=== PATIENT | male | born 1960 | race Native Hawaiian/Other Pacific Islander ===

== ENCOUNTER 2018-06-11 10:03 | Inpatient (IN) | payer OTHER ==
[2018-06-11] MEDS ORDERED: Nitroglycerin 50mg in D5W 50 MG/250 ML BOTTLE IV ONE (10:23)
[2018-06-11 10:38] LABS: BASO # 0.1 K/uL (0.0-0.2); BASO % 0.9 % (0.0-2.0); EOS % 0.1 % (0.0-4.0); HEMOGLOBIN 10.5 g/dL (12.0-18.0); LYMPH # 0.8 K/uL (1.0-4.3); LYMPH % 7.5 % (20.0-40.0); MEAN CELL VOLUME 84.1 fL (80.0-94.0); MEAN CORPUSCULAR HEMOGLOBIN 28.8 pg (27.0-31.0); MEAN CORPUSCULAR HGB CONC 34.2 g/dL (33.0-37.0); MEAN PLATELET VOLUME 7.8 fL (7.2-11.7); MONO # 1.1 K/uL (0.0-0.8); NEUT # 8.7 K/uL (1.8-7.0); NEUT % 81.5 % (50.0-75.0); RBC 3.64 Mil/uL (4.40-5.90); RED CELL DISTRIBUTION WIDTH 16.3 % (11.5-14.5); WHITE BLOOD COUNT 10.7 K/uL (4.8-10.8)
[2018-06-11 10:40] LABS: PLATELET COUNT 331 K/uL (130-400)
[2018-06-11 10:40] LABS: VENOUS BLOOD GAS PCO2 38 mmHg (40-60); VENOUS BLOOD GAS PO2 23 mm/Hg (30-55); VENOUS BLOOD PH 7.32 (7.32-7.43)
[2018-06-11] MEDS ORDERED: Azithromycin 500 MG in Sodium Chloride 0.9% 250 ML IVPB STA (10:42)
--- NOTE | 2018-06-11 10:44 | C.PDOC ---
History Of Present Illness 57 y/o male,w/PMhx of HTN, endarterectomy and diabetes, presents t o the ER complaining of shortness of breath which began 3 days ago. Patient states that he has difficulty breathing when he is walking and at rest. Patient is diaphor etic upon arrival. He notes that he was being evaluated in the [facility] and he was referred to the ER for evaluation.Denies having CP, fever, chills, nausea, and vomiting. Time Seen by Provider: 06/11/18 10:41 Chief Complaint (Nursing): Shortness Of Breath History Per: Patient History/Exam Limitations: no limitations Onset/Duration Of Symptoms: Days Current Symptoms Are (Timing): Still Present Severity: Moderate Past Medical History Reviewed: Historical Data, Nursing Documentation, Vital Signs Vital Signs: Last Vital Signs Temp 97.7 F 06/11/18 10:20 Pulse 88 06/11/18 10:20 Resp 12 06/11/18 10:20 BP 141/65 06/11/18 10:20 Pulse Ox 87 L 06/11/18 10:20 - Medical History PMH: Benign Prostatic Hyperplasia, HTN, Hypercholesterolemia Denies: Chronic Kidney Disease Other Surgeries: Hx of surgeries Family History: States: No Known Family Hx - Social History Hx Alcohol Use: No Hx Substance Use: No - Immunization History Hx Tetanus Toxoid Vaccination: Yes Hx Influenza Vaccination: Yes Hx Pneumococcal Vaccination: Yes Review Of Systems Except As Marked, All Systems Reviewed And Found Negative. Constitutional: Positive for: Sweats. Negative for: Fever, Chills Cardiovascular: Negative for: Chest Pain Respiratory: Positive for: Shortness of Breath Gastrointestinal: Negative for: Nausea, Vomiting Physical Exam - Physical Exam Appears: Non-toxic, No Acute Distress Skin: Normal Color, Warm, Dry Head: Atraumatic, Normacephalic Eye(s): bilateral: Normal Inspection Nose: Normal Oral Mucosa: Moist Neck: Supple Chest: Symmetrical Cardiovascular: Rhythm Regular Respiratory: Rales (mild rales at bases), No Rhonchi, No Wheezing Gastrointestinal/Abdominal: Normal Exam, Soft, No Tenderness, No Guarding, No Rebound Extremity: Normal ROM, Other (bilateral pitting edema) Neurological/Psych: Oriented x3, Normal Speech ED Course And Treatment - Laboratory Results Result Diagrams: 06/15/18 06:56 06/15/18 06:56 ECG: Interpreted By Me, Viewed By Me ECG Rhythm: Sinus Rhythm Interpretation Of ECG: NSR with LBBB Rate From EC O2 Sat by Pulse Oximetry: 87 Pulse Ox Interpretation: Abnormal - Other Rad CXR X-Ray: Viewed By Me, Read By Radiologist Interpretation: Date of service: 06/11/2018. HISTORY: sob. COMPARISON: No prior. FINDINGS: LUNGS: The lungs are well inflated. There is moderate pulmonary venous congestion and mild interstitial pulmonary edema. There is airspace disease in the right lower lobe. PLEURA: Small pleural effusions. No pneumothorax. CARDIOVASCULAR: Mild cardiomegaly. No aortic atherosclerotic calcification present. OSSEOUS STRUCTURES: Within normal limits for the patient's age. VISUALIZED UPPER ABDOMEN: Normal. OTHER FINDINGS: None. IMPRESSION: Findings are most compatible with mild congestive heart failure. Airspace disease in the right lower lobe may represent atelectasis however superimposed pneumonia cannot be excluded. Clinical follow-up is advised. Medical Decision Making Medical Decision Making: Plan: --Labs --ECG --CXR --Aspirin PO --Brilinta PO --Bumex IV --Rocephin IV Updates: 10:30 Case discussed with , import coordination and production head. recommends ordering basic labs and stat Echo. 11:14 On re-evaluation, patient states that he is feeling better. D-Dimer is positive. Lung VQ Scan has been ordered. 11:[address]R Davis. Patient will be admitted to ICU under the service of Dr.R Davis. Disposition - Disposition Disposition: HOME/ ROUTINE Disposition Time: 13:34 Condition: FAIR - POA Core Measure Indicators: Pneumonia - Clinical Impression Clinical Impression: CHF (congestive heart failure), Dyspnea, Respiratory distress
[2018-06-11 10:54] LABS: INR 1.2
[2018-06-11] MEDS ORDERED: Azithromycin 500mg/250ML NS 500 MG/250 ML BAG IVPB ONE (10:54)
[2018-06-11 10:58] LABS: ALB/GLOB RATIO 1.2 (1.0-2.1); ALBUMIN 4.4 g/dL (3.5-5.0)
--- NOTE | 2018-06-11 10:58 | RAD ---
Date of service: 06/11/2018 HISTORY: sob COMPARISON: No prior. FINDINGS: LUNGS: The lungs are well inflated. There is moderate pulmonary venous congestion and mild interstitial pulmonary edema. There is airspace disease in the right lower lobe. PLEURA: Small pleural effusions. No pneumothorax. CARDIOVASCULAR: Mild cardiomegaly. No aortic atherosclerotic calcification present. OSSEOUS STRUCTURES: Within normal limits for the patient's age. VISUALIZED UPPER ABDOMEN: Normal. OTHER FINDINGS: None. IMPRESSION: Findings are most compatible with mild congestive heart failure. Airspace disease in the right lower lobe may represent atelectasis however superimposed pneumonia cannot be excluded. Clinical follow-up is advised.
[2018-06-11 11:17] LABS: ANISOCYTOSIS SLIGHT; BANDS 1 % (0-2); LYMPHOCYTE 4 % (20-40); MONOCYTE 8 % (0-10); NEUTROPHIL 87 % (50-75); PLATELET ESTIMATE NORMAL (NORMAL); TOTAL CELLS COUNTED 100
[2018-06-11 11:18] LABS: HYPOCHROMIC SLIGHT; POLYCHROMIC SLIGHT
[2018-06-11 11:22] LABS: CK-MB 4.77 ng/mL (0.0-3.38); TROPONIN I 0.123 ng/mL (0.00-0.120)
[2018-06-11] MEDS ORDERED: cefTRIAXone 1 gm 1 GM/100 ML BAG IVPB ONE (11:22)
[2018-06-11 12:59] LABS: ABG ALLEN TEST POS; ARTERIAL BLOOD GAS HCO3 18.4 mmol/L (21-28); ARTERIAL BLOOD GAS O2 SAT 96.7 % (95-98); ARTERIAL BLOOD GAS PCO2 35 mm/Hg (35-45); ARTERIAL BLOOD GAS PO2 86 mm/Hg (80-100); ARTERIAL BLOOD GAS TCO2 18.3 mmol/L (22-28)
[2018-06-11] MEDS ORDERED: metOLazone 5 MG TAB PO ONE (13:15)
--- NOTE | 2018-06-11 14:22 | CP.PCM.CON ---
<Onesimo Martinez - Last Filed: 06/11/18 15:23> History of Present Illness - History of Present Illness History of Present Illness: Fredayobanicarissa Michelle PGY1 Consult Note for Dr. Aurora Davis CC: Shortness of breath HPI: Pt is a 57yo M with PMH HTN, CKD, DM, BPH presents to ED for shortness of breath. Pt was sent over from clinic for shortness of breath. Pt reports shortness of breath since Thursday, which he reports is at rest. Pt reports associated nonproductive cough. He also reports swelling in the legs b/l since Thursday. He denies chest pain, dizziness, nausea, vomiting. He reports taking his medications as prescribed. He denies using any breathing treatments or oxygen at home. Pt denies eating food with high sodium content. He typically sleeps with multiple pillows, propped up to 60 degrees. Pt denies fever, chills, abdominal pain, diarrhea, dysuria. 12-point ROS reviewed, all negative except what is stated in HPI. SxH: L carotid endarectomy SocH: 15-pack year smoking history, denies etoh or recreational drug use FamH: dad- heart disease Allergies: NKDA Meds: as per EMR PMD: [place] Review of Systems - Review of Systems Review of Systems: as per HPI Past Patient History - Infectious Disease Hx of Infectious Diseases: None - Past Medical History & Family History Past Medical History?: Yes - Past Social History Smoking Status: Never Smoked - CARDIAC Hx Hypercholesterolemia: Yes Hx Hypertension: Yes - PULMONARY Hx Respiratory Disorders: No - NEUROLOGICAL Hx Neurological Disorder: No - HEENT Hx HEENT Problems: No - RENAL Hx Chronic Kidney Disease: No - ENDOCRINE/METABOLIC Hx Endocrine Disorders: Yes Hx Diabetes Mellitus Type 2: Yes - HEMATOLOGICAL/ONCOLOGICAL Hx Blood Disorders: No - INTEGUMENTARY Hx Dermatological Problems: No - MUSCULOSKELETAL/RHEUMATOLOGICAL Hx Musculoskeletal Disorders: No Hx Falls: No Hx Gout: Yes - GASTROINTESTINAL Hx Gastrointestinal Disorders: No - GENITOURINARY/GYNECOLOGICAL Hx Genitourinary Disorders: No - PSYCHIATRIC Hx Substance Use: No - SURGICAL HISTORY Other/Comment: left neck - CAROTIDENDARTERECTOMY - ANESTHESIA Hx Anesthesia Reactions: No Meds Allergies/Adverse Reactions: Allergies Allergy/AdvReac Type Severity Reaction Status Date / Time shellfish derived Allergy Verified 06/11/18 10:19 seafood Allergy Uncoded 06/11/18 10:19 - Medications Medications: Current Medications Aspirin (Aspirin Chewable) 81 mg PO DAILY [facility] Clopidogrel Bisulfate (Plavix) 75 mg PO DAILY [facility] Insulin Human Regular (Novolin R) 0 unit SC ACHS [facility]; Protocol Rosuvastatin Calcium (Crestor) 20 mg PO HS [facility] Physical Exam - Constitutional Appears: Well, No Acute Distress - Head Exam Head Exam: ATRAUMATIC, NORMOCEPHALIC - Eye Exam Eye Exam: EOMI, Normal appearance, PERRL Pupil Exam: NORMAL ACCOMODATION - ENT Exam ENT Exam: Mucous Membranes Moist - Neck Exam Additional comments: scar on L neck, well healed - Respiratory Exam Respiratory Exam: Decreased Breath Sounds, NORMAL BREATHING PATTERN. absent: Rales, Rhonchi, Wheezes, Respiratory Distress - Cardiovascular Exam Cardiovascular Exam: REGULAR RHYTHM, +S1, +S2. absent: Gallop, Rubs, Systolic Murmur - GI/Abdominal Exam GI & Abdominal Exam: Distended, Normal Bowel Sounds, Soft. absent: Tenderness - Extremities Exam Extremities exam: Positive for: normal inspection, pedal edema - Back Exam Back exam: NORMAL INSPECTION - Neurological Exam Neurological exam: Alert, CN II-XII Intact, Oriented x3 - Psychiatric Exam Psychiatric exam: Normal Affect, Normal Mood - Skin Skin Exam: Normal Color Results - Vital Signs Recent Vital Signs: Last Vital Signs Temp 97.7 F 06/11/18 10:20 Pulse 70 06/11/18 14:00 Resp 25 H 06/11/18 14:00 BP 106/57 L 06/11/18 14:00 Pulse Ox 91 L 06/11/18 14:00 - Labs Result Diagrams: 06/11/18 10:33 06/11/18 10:33 Labs: Laboratory Results - last 24 hr 06/11/18 06/11/18 06/11/18 10:32 10:33 10:33 WBC 10.7 RBC 3.64 L Hgb 10.5 L Hct 30.7 L MCV 84.1 MCH 28.8 MCHC 34.2 RDW 16.3 H Plt Count 331 D MPV 7.8 Neut % (Auto) 81.5 H Lymph % (Auto) 7.5 L [place] % (Auto) 10.0 Eos % (Auto) 0.1 Baso % (Auto) 0.9 Neut # (Auto) 8.7 H Lymph # (Auto) 0.8 L [place] # (Auto) 1.1 H Eos # (Auto) 0.0 Baso # (Auto) 0.1 Neutrophils % (Manual) 87 H Band Neutrophils % 1 Lymphocytes % (Manual) 4 L Monocytes % (Manual) 8 Platelet Estimate Normal Polychromasia Slight Hypochromasia (manual) Slight Anisocytosis (manual) Slight PT 13.0 H INR 1.2 APTT 33 D-Dimer, Quantitative 473 H Puncture Site pCO2 pO2 23 L HCO3 ABG pH ABG Total CO2 ABG O2 Saturation ABG Base Excess ABG Hemoglobin ABG Carboxyhemoglobin POC ABG HHb (Measured) ABG Methemoglobin [place] Test VBG pH 7.32 VBG pCO2 38 L VBG HCO3 18.5 VBG Total CO2 20.8 L VBG O2 Sat (Calc) 44.2 VBG Base Excess -6.0 L VBG Potassium 3.9 Hgb O2 Saturation Sodium 122.0 L Chloride 90.0 L Glucose 206 H Lactate 1.7 FiO2 Inspiratory BiPAP Expiratory BiPAP Potassium Carbon Dioxide Anion Gap BUN Creatinine Est GFR ( Amer) Est GFR (Non-Af Amer) Random Glucose Hemoglobin A1c Calcium Total Bilirubin AST ALT Alkaline Phosphatase CK-MB (Mass) Troponin I NT-Pro-B Natriuret Pep Total Protein Albumin Globulin Albumin/Globulin Ratio Triglycerides Cholesterol LDL Cholesterol Direct HDL Cholesterol Venous Blood Potassium 3.9 Influenza Typ A,B (EIA) Blood Type Antibody Screen 06/11/18 06/11/18 06/11/18 10:33 10:33 10:33 WBC RBC Hgb Hct MCV MCH MCHC RDW Plt Count MPV Neut % (Auto) Lymph % (Auto) [place] % (Auto) Eos % (Auto) Baso % (Auto) Neut # (Auto) Lymph # (Auto) [place] # (Auto) Eos # (Auto) Baso # (Auto) Neutrophils % (Manual) Band Neutrophils % Lymphocytes % (Manual) Monocytes % (Manual) Platelet Estimate Polychromasia Hypochromasia (manual) Anisocytosis (manual) PT INR APTT D-Dimer, Quantitative Puncture Site pCO2 pO2 HCO3 ABG pH ABG Total CO2 ABG O2 Saturation ABG Base Excess ABG Hemoglobin ABG Carboxyhemoglobin POC ABG HHb (Measured) ABG Methemoglobin Corby Test VBG pH VBG pCO2 VBG HCO3 VBG Total CO2 VBG O2 Sat (Calc) VBG Base Excess VBG Potassium Hgb O2 Saturation Sodium 123 L Chloride 87 L Glucose Lactate FiO2 Inspiratory BiPAP Expiratory BiPAP Potassium 4.0 Carbon Dioxide 19 L Anion Gap 22 H BUN 41 H Creatinine 2.4 H Est GFR ( Amer) 34 Est GFR (Non-Af Amer) 28 Random Glucose 200 H Hemoglobin A1c 6.7 H Calcium 9.0 Total Bilirubin 1.1 AST 28 ALT 24 Alkaline Phosphatase 114 CK-MB (Mass) 4.77 H Troponin I 0.1230 H* NT-Pro-B Natriuret Pep 4160 H Total Protein 8.2 Albumin 4.4 Globulin 3.8 Albumin/Globulin Ratio 1.2 Triglycerides 67 Cholesterol 143 LDL Cholesterol Direct 64 HDL Cholesterol 52 Venous Blood Potassium Influenza Typ A,B (EIA) Blood Type O POSITIVE Antibody Screen Negative 06/11/18 06/11/18 10:45 11:25 WBC RBC Hgb Hct MCV MCH MCHC RDW Plt Count MPV Neut % (Auto) Lymph % (Auto) [place] % (Auto) Eos % (Auto) Baso % (Auto) Neut # (Auto) Lymph # (Auto) [place] # (Auto) Eos # (Auto) Baso # (Auto) Neutrophils % (Manual) Band Neutrophils % Lymphocytes % (Manual) Monocytes % (Manual) Platelet Estimate Polychromasia Hypochromasia (manual) Anisocytosis (manual) PT INR APTT D-Dimer, Quantitative Puncture Site Rra pCO2 35 pO2 86 HCO3 18.4 L ABG pH 7.30 L ABG Total CO2 18.3 L ABG O2 Saturation 96.7 ABG Base Excess -8.4 L ABG Hemoglobin 10.0 L ABG Carboxyhemoglobin 1.1 POC ABG HHb (Measured) 3.3 ABG Methemoglobin 0.3 [place] Test Pos VBG pH VBG pCO2 VBG HCO3 VBG Total CO2 VBG O2 Sat (Calc) VBG Base Excess VBG Potassium Hgb O2 Saturation 95.3 Sodium Chloride Glucose Lactate FiO2 60.0 Inspiratory BiPAP 12 Expiratory BiPAP 6 Potassium Carbon Dioxide Anion Gap BUN Creatinine Est GFR ( Amer) Est GFR (Non-Af Amer) Random Glucose Hemoglobin A1c Calcium Total Bilirubin AST ALT Alkaline Phosphatase CK-MB (Mass) Troponin I NT-Pro-B Natriuret Pep Total Protein Albumin Globulin Albumin/Globulin Ratio Triglycerides Cholesterol LDL Cholesterol Direct HDL Cholesterol Venous Blood Potassium Influenza Typ A,B (EIA) Negative for flu a/b Blood Type Antibody Screen Assessment & Plan - Assessment and Plan (Free Text) Assessment: Pt is a 57yo M with PMH HTN, DM, CKD, BPH presents to ED for shortness of breath, admitted for acute CHF exacerbation. CXR showed venous congestion and interstitial edema. Pt breathing well on nasal cannula. Monitor urine output. Plan: Neuro AAOx3 no focal deficits Cardiovascular CHF - pt with shortness of breath - CXR 06/11: RLL atelectasis, venous congestion, interstitial edema - ECHO: f/u report - EKG: NSR, LBBB - troponin elevated, 0.123 - CKMB elevated, 4.77 - BNP elevated, 4160 - d-dimer elevated, 473 likely secondary to renal failure - given metalozone 10mg twice in ED - given butamex 2mg IVP and 1mg IVP in ED - ASA 81mg PO daily - plavix 75mg PO daily - crestor 10mg PO HS H/o HTN - maintain normotension Pulm CHF - pt with shortness of breath - CXR 06/11: RLL atelectasis, venous congestion, interstitial edema - ECHO: f/u report - EKG: NSR, LBBB - troponin elevated, 0.123 - CKMB elevated, 4.77 - BNP elevated, 4160 - given metalozin 10mg twice in ED - given butamex 2mg IVP and 1mg IVP in ED - pt on nasal cannula - monitor I/Os GI protonix 40mg PO daily Renal CKD stage IV - BUN/Cr 41/2.4 - consider AVF placement - Vascular Sx consulted, Dr. Casiano - monitor I/Os Endo DM 2 - HbA1c 6.7 - low dose sliding scale - accuchecks achs Heme ASA 81mg PO daily plavix 75mg PO daily ID CXR 06/11: RLL atelectasis, venous congestion, interstitial edema given azithromycin 500mg IV and rocephin 1g IV in ED f/u BCx PPx GI: protonix 40 PO DVT: SCDs HHD Pt seen and case reviewed with Dr. Davis <Jesús Davis - Last Filed: 06/11/18 15:55> Meds - Medications Medications: Current Medications Aspirin (Aspirin Chewable) 81 mg PO DAILY [facility] Calcitriol (Rocaltrol) 0.5 mcg PO DAILY [facility] Clopidogrel Bisulfate (Plavix) 75 mg PO DAILY [facility] Insulin Human Regular (Novolin R) 0 unit SC ACHS [facility]; Protocol Pantoprazole Sodium (Protonix Ec Tab) 40 mg PO DAILY [facility] Rosuvastatin Calcium (Crestor) 10 mg PO HS [facility] Results - Vital Signs Recent Vital Signs: Last Vital Signs Temp 97.7 F 06/11/18 10:20 Pulse 74 06/11/18 15:34 Resp 31 H 06/11/18 15:20 BP 120/56 L 06/11/18 15:34 Pulse Ox 97 06/11/18 15:34 - Labs Result Diagrams: 06/11/18 10:33 06/11/18 10:33 Labs: Laboratory Results - last 24 hr 06/11/18 06/11/18 06/11/18 10:32 10:33 10:33 WBC 10.7 RBC 3.64 L Hgb 10.5 L Hct 30.7 L MCV 84.1 MCH 28.8 MCHC 34.2 RDW 16.3 H Plt Count 331 D MPV 7.8 Neut % (Auto) 81.5 H Lymph % (Auto) 7.5 L [place] % (Auto) 10.0 Eos % (Auto) 0.1 Baso % (Auto) 0.9 Neut # (Auto) 8.7 H Lymph # (Auto) 0.8 L [place] # (Auto) 1.1 H Eos # (Auto) 0.0 Baso # (Auto) 0.1 Neutrophils % (Manual) 87 H Band Neutrophils % 1 Lymphocytes % (Manual) 4 L Monocytes % (Manual) 8 Platelet Estimate Normal Polychromasia Slight Hypochromasia (manual) Slight Anisocytosis (manual) Slight PT 13.0 H INR 1.2 APTT 33 D-Dimer, Quantitative 473 H Puncture Site pCO2 pO2 23 L HCO3 ABG pH ABG Total CO2 ABG O2 Saturation ABG Base Excess ABG Hemoglobin ABG Carboxyhemoglobin POC ABG HHb (Measured) ABG Methemoglobin Corby Test VBG pH 7.32 VBG pCO2 38 L VBG HCO3 18.5 VBG Total CO2 20.8 L VBG O2 Sat (Calc) 44.2 VBG Base Excess -6.0 L VBG Potassium 3.9 Hgb O2 Saturation Sodium 122.0 L Chloride 90.0 L Glucose 206 H Lactate 1.7 FiO2 Inspiratory BiPAP Expiratory BiPAP Potassium Carbon Dioxide Anion Gap BUN Creatinine Est GFR ( Amer) Est GFR (Non-Af Amer) Random Glucose Hemoglobin A1c Calcium Total Bilirubin AST ALT Alkaline Phosphatase CK-MB (Mass) Troponin I NT-Pro-B Natriuret Pep Total Protein Albumin Globulin Albumin/Globulin Ratio Triglycerides Cholesterol LDL Cholesterol Direct HDL Cholesterol Venous Blood Potassium 3.9 Influenza Typ A,B (EIA) Blood Type Antibody Screen 06/11/18 06/11/18 06/11/18 10:33 10:33 10:33 WBC RBC Hgb Hct MCV MCH MCHC RDW Plt Count MPV Neut % (Auto) Lymph % (Auto) [place] % (Auto) Eos % (Auto) Baso % (Auto) Neut # (Auto) Lymph # (Auto) [place] # (Auto) Eos # (Auto) Baso # (Auto) Neutrophils % (Manual) Band Neutrophils % Lymphocytes % (Manual) Monocytes % (Manual) Platelet Estimate Polychromasia Hypochromasia (manual) Anisocytosis (manual) PT INR APTT D-Dimer, Quantitative Puncture Site pCO2 pO2 HCO3 ABG pH ABG Total CO2 ABG O2 Saturation ABG Base Excess ABG Hemoglobin ABG Carboxyhemoglobin POC ABG HHb (Measured) ABG Methemoglobin [place] Test VBG pH VBG pCO2 VBG HCO3 VBG Total CO2 VBG O2 Sat (Calc) VBG Base Excess VBG Potassium Hgb O2 Saturation Sodium 123 L Chloride 87 L Glucose Lactate FiO2 Inspiratory BiPAP Expiratory BiPAP Potassium 4.0 Carbon Dioxide 19 L Anion Gap 22 H BUN 41 H Creatinine 2.4 H Est GFR ( Amer) 34 Est GFR (Non-Af Amer) 28 Random Glucose 200 H Hemoglobin A1c 6.7 H Calcium 9.0 Total Bilirubin 1.1 AST 28 ALT 24 Alkaline Phosphatase 114 CK-MB (Mass) 4.77 H Troponin I 0.1230 H* NT-Pro-B Natriuret Pep 4160 H Total Protein 8.2 Albumin 4.4 Globulin 3.8 Albumin/Globulin Ratio 1.2 Triglycerides 67 Cholesterol 143 LDL Cholesterol Direct 64 HDL Cholesterol 52 Venous Blood Potassium Influenza Typ A,B (EIA) Blood Type O POSITIVE Antibody Screen Negative 06/11/18 06/11/18 10:45 11:25 WBC RBC Hgb Hct MCV MCH MCHC RDW Plt Count MPV Neut % (Auto) Lymph % (Auto) [place] % (Auto) Eos % (Auto) Baso % (Auto) Neut # (Auto) Lymph # (Auto) [place] # (Auto) Eos # (Auto) Baso # (Auto) Neutrophils % (Manual) Band Neutrophils % Lymphocytes % (Manual) Monocytes % (Manual) Platelet Estimate Polychromasia Hypochromasia (manual) Anisocytosis (manual) PT INR APTT D-Dimer, Quantitative Puncture Site Rra pCO2 35 pO2 86 HCO3 18.4 L ABG pH 7.30 L ABG Total CO2 18.3 L ABG O2 Saturation 96.7 ABG Base Excess -8.4 L ABG Hemoglobin 10.0 L ABG Carboxyhemoglobin 1.1 POC ABG HHb (Measured) 3.3 ABG Methemoglobin 0.3 [place] Test Pos VBG pH VBG pCO2 VBG HCO3 VBG Total CO2 VBG O2 Sat (Calc) VBG Base Excess VBG Potassium Hgb O2 Saturation 95.3 Sodium Chloride Glucose Lactate FiO2 60.0 Inspiratory BiPAP 12 Expiratory BiPAP 6 Potassium Carbon Dioxide Anion Gap BUN Creatinine Est GFR ( Amer) Est GFR (Non-Af Amer) Random Glucose Hemoglobin A1c Calcium Total Bilirubin AST ALT Alkaline Phosphatase CK-MB (Mass) Troponin I NT-Pro-B Natriuret Pep Total Protein Albumin Globulin Albumin/Globulin Ratio Triglycerides Cholesterol LDL Cholesterol Direct HDL Cholesterol Venous Blood Potassium Influenza Typ A,B (EIA) Negative for flu a/b Blood Type Antibody Screen Assessment & Plan - Assessment and Plan (Free Text) Plan: Patient seen and examined at bedside. Patient has h/o chronic diastolic heart failure, h/o CAD, h/o athrosclerotic vascular disease, diabeted x 10 yrs h/o CKD stage III, lower leg swelling presents to [facility] with c/o SOB. -SOB: pulmonary congestion: continue bumex avoid fluid overloaded, (LE edema) -continue bi-pap -DM: cehck hba2c, tsh and BGm achs -CAD/myocardial infarction: will benfit from DAPT, statin and av sena jhony, IV heparin for 48 ohours -Chronic systolic/diastolic heart failure: not a candidate for ACEI 2nd CKD, use combination of nitrates and hydralaizine as BP tolerates -CKD stage III: will benefit from AV fistula and nepholrogy consult, start calcitriol, no acute indication fo HD -DVT ppx heparin -PUD ppx pepcid -Patient remains hemodynamically stable. continue to monitor - Date & Time Date: 06/11/18 Time: 15:55
[2018-06-11] MEDS: Heparin25000 units/250ml 1/2NS 25,000 UNITS/250 ML BAG IV PRN (17:25)
[2018-06-11] MEDS: (Novolin R) Insulin Human Regular 100 units/ml vial SC SCH ×2 (17:30→21:50)
--- NOTE | 2018-06-11 21:18 | CARD ---
APPROVED REPORT Date of service: 06/11/2018 EXAM: Two-dimensional and M-mode echocardiogram with Doppler and color Doppler. Other Information Quality : GoodRhythm : INDICATION Dyspnea Congestive Heart Failure 2D DIMENSIONS IVSd1.1 (0.7-1.1cm)LVDd5.1 (3.9-5.9cm) PWd1.0 (0.7-1.1cm)LA Aypafg25 (18-58mL) LVDs3.2 (2.5-4.0cm)FS (%) 37.1 % LVEF (%)55.0 (>50%)LVEF (Reid's)57.72 % M-Mode DIMENSIONS Left Atrium (MM)4.13 (2.5-4.0cm)IVSd1.08 (0.7-1.1cm) Aortic Root3.17 (2.2-3.7cm)LVDd4.92 (4.0-5.6cm) Aortic Cusp Exc.1.99 (1.5-2.0cm)PWd0.93 (0.7-1.1cm) FS (%) 42 %LVDs2.88 (2.0-3.8cm) LVEF (%)55 (>50%) Aortic Valve AI P 1/2 [id number] Mitral Valve MV E Imhbwfcy134.0cm/sMV A Zrklqhxh028.5cm/sE/A ratio1.1 NUHU654.57 cm/s TDI Lateral E' Peak V6.09cm/sMedial E' Peak V5.58cm/sE/Lateral E'19.5 E/Medial E'21.3 Tricuspid Valve TR Peak [id number]/sTR Peak [id number] <Conclusion> Left ventricle: thickness: normal; size: normal; overall ejection fraction: 50%: diastolic filling pressures: elevated Mitral valve: annulus: normal: leaflets: normal: excursion: normal; no significant trans-mitral gradient: mild to moderate incompetence: left atrium: normal Aortic valve: leaflets: mild calcific thickening: excursion: normal; no significant trans-aortic gradient: mild to moderate incompetence: aortic root: normal Right sided Structures: Pulmonary valve: normal;mild incompetence; Tricuspid valve: normal; mild incompetence: Intra-cardiac hemodynamics: pulmonary systolic pressures:50mmHg; central venous pressures: normal Mild concentric pericardial effusion; no defintive evidence of tamponade
--- NOTE | 2018-06-11 21:25 | CP.PCM.CON ---
History of Present Illness - History of Present Illness History of Present Illness: Vascular Surgery consult note. Dr. Casiano 57yo M with PMHx of HTN, CKD, DM, BPH currently being treated in the ICU for acute CHF exacerbation. Consult requested for AVF placement evaluation. Patient currently c/o SOB that started 4 days ago. No other complaints endorsed. Denies having dialysis in the past. Currently, patient is noted to have increased pulmonary vascular congestion on CXR. Creatinine 2.4. PMD: Dr. Cabrera PMHx: HTN, CKD, DM, BPH PSHx: Left Carotid endarterectomy Social Hx: Current smoker (15 pack year hx), Denies ETOH use, Denies illicit drugs Family Hx: Father - Heart disease Allergy: Shellfish Review of Systems - Review of Systems All systems: reviewed and no additional remarkable complaints except - Constitutional Constitutional: absent: Chills, Fever - EENT Eyes: absent: Blurred Vision Ears: absent: Decreased Hearing Nose/Mouth/Throat: absent: Nasal Congestion - Cardiovascular Cardiovascular: Dyspnea, Dyspnea on Exertion, Edema. absent: Chest Pain - Respiratory Respiratory: Dyspnea. absent: Cough - Gastrointestinal Gastrointestinal: absent: Abdominal Pain, Diarrhea, Nausea, Vomiting - Genitourinary Genitourinary: absent: Dysuria - Integumentary Integumentary: Swelling - Neurological Neurological: absent: Abnormal Gait, Headaches Past Patient History - Infectious Disease Hx of Infectious Diseases: None - Past Medical History & Family History Past Medical History?: Yes Past Family History: Reviewed and not pertinent - Past Social History Smoking Status: Light Smoker < 10 Cigarettes Daily Alcohol: None Drugs: Denies Home Situation {Lives}: With Family - CARDIAC Hx Hypercholesterolemia: Yes Hx Hypertension: Yes - PULMONARY Hx Respiratory Disorders: No - NEUROLOGICAL Hx Neurological Disorder: No - HEENT Hx HEENT Problems: No - RENAL Hx Chronic Kidney Disease: No - ENDOCRINE/METABOLIC Hx Endocrine Disorders: Yes Hx Diabetes Mellitus Type 2: Yes - HEMATOLOGICAL/ONCOLOGICAL Hx Blood Disorders: No - INTEGUMENTARY Hx Dermatological Problems: No - MUSCULOSKELETAL/RHEUMATOLOGICAL Hx Musculoskeletal Disorders: No Hx Falls: No Hx Gout: Yes - GASTROINTESTINAL Hx Gastrointestinal Disorders: No - GENITOURINARY/GYNECOLOGICAL Hx Genitourinary Disorders: No - PSYCHIATRIC Hx Substance Use: No - SURGICAL HISTORY Other/Comment: left neck - CAROTIDENDARTERECTOMY - ANESTHESIA Hx Anesthesia Reactions: No Meds Allergies/Adverse Reactions: Allergies Allergy/AdvReac Type Severity Reaction Status Date / Time shellfish derived Allergy Verified 06/11/18 10:19 seafood Allergy Uncoded 06/11/18 10:19 - Medications Medications: Current Medications Aspirin (Aspirin Chewable) 81 mg PO DAILY [facility] Calcitriol (Rocaltrol) 0.5 mcg PO DAILY [facility] Clopidogrel Bisulfate (Plavix) 75 mg PO DAILY [facility] Heparin Sodium/Sodium Chloride (Heparin 76106 Units/250ml 1/2 Normal Saline) 25,000 units in 250 mls @ 7.144 mls/hr IV .Q24H PRN; Protocol PRN Reason: PROTOCOL Last Admin: 06/11/18 17:25 Dose: 9 units/kg/hr, 7.144 mls/hr Insulin Human Regular (Novolin R) 0 unit SC ACHS [facility]; Protocol Last Admin: 06/11/18 17:30 Dose: 2 u Pantoprazole Sodium (Protonix Ec Tab) 40 mg PO DAILY [facility] Rosuvastatin Calcium (Crestor) 10 mg PO HS [facility] Physical Exam - Constitutional Appears: Non-toxic - Head Exam Head Exam: ATRAUMATIC, NORMAL INSPECTION, NORMOCEPHALIC - Eye Exam Eye Exam: EOMI, Normal appearance - ENT Exam ENT Exam: Mucous Membranes Moist - Respiratory Exam Respiratory Exam: absent: Accessory Muscle Use Additional comments: on BiPAP - Cardiovascular Exam Cardiovascular Exam: RRR. absent: JVD - GI/Abdominal Exam GI & Abdominal Exam: Soft. absent: Distended, Guarding, Rebound, Rigid, Tenderness - Extremities Exam Extremities exam: Positive for: normal inspection Additional comments: left arm with peripheral IV in place distal pulses intact - Back Exam Back exam: NORMAL INSPECTION - Neurological Exam Neurological exam: Alert, Oriented x3 - Psychiatric Exam Psychiatric exam: Normal Affect, Normal Mood - Skin Skin Exam: Dry, Intact, Normal Color, Warm Results - Vital Signs Recent Vital Signs: Last Vital Signs Temp 97.6 F 06/11/18 20:00 Pulse 86 06/11/18 20:09 Resp 26 H 06/11/18 20:00 BP 124/60 06/11/18 19:34 Pulse Ox 97 06/11/18 20:00 - Labs Result Diagrams: 06/11/18 10:33 06/11/18 10:33 Labs: Laboratory Results - last 24 hr 06/11/18 06/11/18 06/11/18 10:32 10:33 10:33 WBC 10.7 RBC 3.64 L Hgb 10.5 L Hct 30.7 L MCV 84.1 MCH 28.8 MCHC 34.2 RDW 16.3 H Plt Count 331 D MPV 7.8 Neut % (Auto) 81.5 H Lymph % (Auto) 7.5 L Dawes % (Auto) 10.0 Eos % (Auto) 0.1 Baso % (Auto) 0.9 Neut # (Auto) 8.7 H Lymph # (Auto) 0.8 L Dawes # (Auto) 1.1 H Eos # (Auto) 0.0 Baso # (Auto) 0.1 Neutrophils % (Manual) 87 H Band Neutrophils % 1 Lymphocytes % (Manual) 4 L Monocytes % (Manual) 8 Platelet Estimate Normal Polychromasia Slight Hypochromasia (manual) Slight Anisocytosis (manual) Slight PT 13.0 H INR 1.2 APTT 33 D-Dimer, Quantitative 473 H Puncture Site pCO2 pO2 23 L HCO3 ABG pH ABG Total CO2 ABG O2 Saturation ABG Base Excess ABG Hemoglobin ABG Carboxyhemoglobin POC ABG HHb (Measured) ABG Methemoglobin Corby Test VBG pH 7.32 VBG pCO2 38 L VBG HCO3 18.5 VBG Total CO2 20.8 L VBG O2 Sat (Calc) 44.2 VBG Base Excess -6.0 L VBG Potassium 3.9 Hgb O2 Saturation Sodium 122.0 L Chloride 90.0 L Glucose 206 H Lactate 1.7 FiO2 Inspiratory BiPAP Expiratory BiPAP Potassium Carbon Dioxide Anion Gap BUN Creatinine Est GFR ( Amer) Est GFR (Non-Af Amer) POC Glucose (mg/dL) Random Glucose Hemoglobin A1c Calcium Total Bilirubin AST ALT Alkaline Phosphatase CK-MB (Mass) Troponin I NT-Pro-B Natriuret Pep Total Protein Albumin Globulin Albumin/Globulin Ratio Triglycerides Cholesterol LDL Cholesterol Direct HDL Cholesterol Venous Blood Potassium 3.9 Influenza Typ A,B (EIA) Blood Type Antibody Screen 06/11/18 06/11/18 06/11/18 10:33 10:33 10:33 WBC RBC Hgb Hct MCV MCH MCHC RDW Plt Count MPV Neut % (Auto) Lymph % (Auto) Dawes % (Auto) Eos % (Auto) Baso % (Auto) Neut # (Auto) Lymph # (Auto) Dawes # (Auto) Eos # (Auto) Baso # (Auto) Neutrophils % (Manual) Band Neutrophils % Lymphocytes % (Manual) Monocytes % (Manual) Platelet Estimate Polychromasia Hypochromasia (manual) Anisocytosis (manual) PT INR APTT D-Dimer, Quantitative Puncture Site pCO2 pO2 HCO3 ABG pH ABG Total CO2 ABG O2 Saturation ABG Base Excess ABG Hemoglobin ABG Carboxyhemoglobin POC ABG HHb (Measured) ABG Methemoglobin Corby Test VBG pH VBG pCO2 VBG HCO3 VBG Total CO2 VBG O2 Sat (Calc) VBG Base Excess VBG Potassium Hgb O2 Saturation Sodium 123 L Chloride 87 L Glucose Lactate FiO2 Inspiratory BiPAP Expiratory BiPAP Potassium 4.0 Carbon Dioxide 19 L Anion Gap 22 H BUN 41 H Creatinine 2.4 H Est GFR ( Amer) 34 Est GFR (Non-Af Amer) 28 POC Glucose (mg/dL) Random Glucose 200 H Hemoglobin A1c 6.7 H Calcium 9.0 Total Bilirubin 1.1 AST 28 ALT 24 Alkaline Phosphatase 114 CK-MB (Mass) 4.77 H Troponin I 0.1230 H* NT-Pro-B Natriuret Pep 4160 H Total Protein 8.2 Albumin 4.4 Globulin 3.8 Albumin/Globulin Ratio 1.2 Triglycerides 67 Cholesterol 143 LDL Cholesterol Direct 64 HDL Cholesterol 52 Venous Blood Potassium Influenza Typ A,B (EIA) Blood Type O POSITIVE Antibody Screen Negative 06/11/18 06/11/18 06/11/18 10:45 11:25 16:41 WBC RBC Hgb Hct MCV MCH MCHC RDW Plt Count MPV Neut % (Auto) Lymph % (Auto) Dawes % (Auto) Eos % (Auto) Baso % (Auto) Neut # (Auto) Lymph # (Auto) Dawes # (Auto) Eos # (Auto) Baso # (Auto) Neutrophils % (Manual) Band Neutrophils % Lymphocytes % (Manual) Monocytes % (Manual) Platelet Estimate Polychromasia Hypochromasia (manual) Anisocytosis (manual) PT INR APTT D-Dimer, Quantitative Puncture Site Rra pCO2 35 pO2 86 HCO3 18.4 L ABG pH 7.30 L ABG Total CO2 18.3 L ABG O2 Saturation 96.7 ABG Base Excess -8.4 L ABG Hemoglobin 10.0 L ABG Carboxyhemoglobin 1.1 POC ABG HHb (Measured) 3.3 ABG Methemoglobin 0.3 Corby Test Pos VBG pH VBG pCO2 VBG HCO3 VBG Total CO2 VBG O2 Sat (Calc) VBG Base Excess VBG Potassium Hgb O2 Saturation 95.3 Sodium Chloride Glucose Lactate FiO2 60.0 Inspiratory BiPAP 12 Expiratory BiPAP 6 Potassium Carbon Dioxide Anion Gap BUN Creatinine Est GFR ( Amer) Est GFR (Non-Af Amer) POC Glucose (mg/dL) 246 H Random Glucose Hemoglobin A1c Calcium Total Bilirubin AST ALT Alkaline Phosphatase CK-MB (Mass) Troponin I NT-Pro-B Natriuret Pep Total Protein Albumin Globulin Albumin/Globulin Ratio Triglycerides Cholesterol LDL Cholesterol Direct HDL Cholesterol Venous Blood Potassium Influenza Typ A,B (EIA) Negative for flu a/b Blood Type Antibody Screen 06/11/18 20:58 WBC RBC Hgb Hct MCV MCH MCHC RDW Plt Count MPV Neut % (Auto) Lymph % (Auto) Dawes % (Auto) Eos % (Auto) Baso % (Auto) Neut # (Auto) Lymph # (Auto) Dawes # (Auto) Eos # (Auto) Baso # (Auto) Neutrophils % (Manual) Band Neutrophils % Lymphocytes % (Manual) Monocytes % (Manual) Platelet Estimate Polychromasia Hypochromasia (manual) Anisocytosis (manual) PT INR APTT D-Dimer, Quantitative Puncture Site pCO2 pO2 HCO3 ABG pH ABG Total CO2 ABG O2 Saturation ABG Base Excess ABG Hemoglobin ABG Carboxyhemoglobin POC ABG HHb (Measured) ABG Methemoglobin Corby Test VBG pH VBG pCO2 VBG HCO3 VBG Total CO2 VBG O2 Sat (Calc) VBG Base Excess VBG Potassium Hgb O2 Saturation Sodium Chloride Glucose Lactate FiO2 Inspiratory BiPAP Expiratory BiPAP Potassium Carbon Dioxide Anion Gap BUN Creatinine Est GFR ( Amer) Est GFR (Non-Af Amer) POC Glucose (mg/dL) 189 H Random Glucose Hemoglobin A1c Calcium Total Bilirubin AST ALT Alkaline Phosphatase CK-MB (Mass) Troponin I NT-Pro-B Natriuret Pep Total Protein Albumin Globulin Albumin/Globulin Ratio Triglycerides Cholesterol LDL Cholesterol Direct HDL Cholesterol Venous Blood Potassium Influenza Typ A,B (EIA) Blood Type Antibody Screen Assessment & Plan - Assessment and Plan (Free Text) Assessment: 57yo M with CKD Plan: - left arm precautions - We will plan for AVF once patient is stable and acute medical problems have resolved - will need vein mapping once amenable (non-urgent) Further recs as per Dr. Oh Crews PGY2 Surgery
[2018-06-12 05:41] LABS: BASO # 0.1 K/uL (0.0-0.2); BASO % 0.4 % (0.0-2.0); HEMOGLOBIN 9.7 g/dL (12.0-18.0); LYMPH # 1.3 K/uL (1.0-4.3); LYMPH % 10.6 % (20.0-40.0); MEAN CORPUSCULAR HEMOGLOBIN 27.3 pg (27.0-31.0); MEAN CORPUSCULAR HGB CONC 33.4 g/dL (33.0-37.0); MEAN PLATELET VOLUME 8.1 fL (7.2-11.7); MONO # 1.6 K/uL (0.0-0.8); MONO % 13.6 % (0.0-10.0); NEUT # 9.1 K/uL (1.8-7.0); NEUT % 75.4 % (50.0-75.0); RBC 3.57 Mil/uL (4.40-5.90); RED CELL DISTRIBUTION WIDTH 16.5 % (11.5-14.5); WHITE BLOOD COUNT 12.1 K/uL (4.8-10.8)
[2018-06-12 05:46] LABS: MEAN CELL VOLUME 81.7 fL (80.0-94.0)
[2018-06-12 05:47] LABS: INR 1.2; PROTHROMBIN TIME 13.3 SECONDS (9.7-12.2)
[2018-06-12 06:39] LABS: ALB/GLOB RATIO 1.1 (1.0-2.1); ALBUMIN 4.1 g/dL (3.5-5.0); CALCIUM 8.6 mg/dl (8.6-10.4)
[2018-06-12] MEDS: (Novolin R) Insulin Human Regular 100 units/ml vial SC SCH ×4 (07:58→21:29)
--- NOTE | 2018-06-12 09:20 | CP.PCM.PN ---
Subjective - Date & Time of Evaluation Date of Evaluation: 06/12/18 Time of Evaluation: 09:17 - Subjective Subjective: Patient seen and examined at bedside. Objective - Vital Signs/Intake and Output Vital Signs (last 24 hours): Temp Pulse Resp BP Pulse Ox 98.6 F 93 H 31 H 144/66 99 06/12/18 04:00 06/12/18 09:12 06/12/18 09:12 06/12/18 09:12 06/12/18 09:12 Intake and Output: 06/12/18 06/12/18 06:59 18:59 Intake Total 716.4 241.6 Output Total 2000 0 Balance -1283.6 241.6 - Medications Medications: Current Medications Aspirin (Aspirin Chewable) 81 mg PO DAILY [facility] Bumetanide (Bumex) 1 mg PO BID [facility] Calcitriol (Rocaltrol) 0.5 mcg PO DAILY [facility] Calcium Acetate (Phoslo) 667 mg PO BIDCC [facility] Clopidogrel Bisulfate (Plavix) 75 mg PO DAILY [facility] Heparin Sodium/Sodium Chloride (Heparin 16848 Units/250ml 1/2 Normal Saline) 25,000 units in 250 mls @ 7.144 mls/hr IV .Q24H PRN; Protocol PRN Reason: PROTOCOL Last Admin: 06/11/18 17:25 Dose: 9 units/kg/hr, 7.144 mls/hr Insulin Human Regular (Novolin R) 0 unit SC [facility]; Protocol Last Admin: 06/12/18 07:58 Dose: Not Given Metolazone (Zaroxolyn) 10 mg PO DAILY [facility] Pantoprazole Sodium (Protonix Ec Tab) 40 mg PO DAILY [facility] Rosuvastatin Calcium (Crestor) 10 mg PO [facility] Last Admin: 06/11/18 21:50 Dose: 10 mg - Labs Labs: 06/12/18 05:34 06/12/18 05:34 PT 13.3 SECONDS (9.7-12.2) H 06/12/18 05:34 INR 1.2 06/12/18 05:34 APTT 57 SECONDS (21-34) H 06/12/18 05:34 - Head Exam Head Exam: ATRAUMATIC, NORMAL INSPECTION, NORMOCEPHALIC - Eye Exam Eye Exam: Normal appearance - ENT Exam ENT Exam: Mucous Membranes Moist - Neck Exam Neck Exam: Full ROM - Respiratory Exam Respiratory Exam: NORMAL BREATHING PATTERN - Cardiovascular Exam Cardiovascular Exam: REGULAR RHYTHM, +S1, +S2 - GI/Abdominal Exam GI & Abdominal Exam: Normal Bowel Sounds - Extremities Exam Extremities Exam: Pedal Edema - Neurological Exam Neurological Exam: Alert, Awake, CN II-XII Intact, Oriented x3 - Skin Skin Exam: Normal Color Assessment and Plan - Assessment and Plan (Free Text) Assessment: pulmonary congestion: continue bumex avoid fluid overloaded, (LE edema) -continue bi-pap PRN -DM: will benefit from strict glcose control with, starlix, jenuvia -CAD/myocardial infarction: will benefit from DAPT, statin and , IV heparin for 48 hours -Chronic systolic/diastolic heart failure: not a candidate for ACEI 2nd CKD, use combination of nitrates and hydralaizine as BP tolerates -CKD stage III: will benefit from AV fistula and nepholrogy consult, start calcitriol, phosphate high start phoslo, no acute indication for HD -DVT ppx heparin -PUD ppx pepcid -Patient remains hemodynamically stbale PT/Ot activity as tolerated
--- NOTE | 2018-06-12 10:28 | CP.PCM.CON ---
History of Present Illness - History of Present Illness History of Present Illness: HPI: Pt is a 57yo M with PMH HTN, CKD, DM, BPH presents to ED for shortness of breath. Pt was sent over from clinic for shortness of breath. Pt reports shortness of breath since Thursday, which he reports is at rest. He describes orthopnea and LEES as well for past48 hrs. Pt reports associated nonproductive cough. He also reports swelling in the legs b/l since Thursday. He denies chest pain, dizziness, nausea, vomiting. He reports taking his medications as prescribed. He denies using any breathing treatments or oxygen at home. Pt de nies eating food with high sodium content. He typically sleeps with multiple pillows, propped up to 60 degrees. Pt denies fever, chills, abdominal pain, diarrhea, dysuria. Patient recentlytaken off of lasix and started HCTZ. 12-point ROS reviewed, all negative except what is stated in HPI. SxH: L carotid endarectomy SocH: 15-pack year smoking history, denies etoh or recreational drug use FamH: dad- heart disease Allergies: NKDA Meds: as per EMR Review of Systems - Constitutional Constitutional: Fatigue, Weight Gain. absent: Anorexia, Chills, Fever - EENT Eyes: absent: Blurred Vision, Dry Eye Nose/Mouth/Throat: absent: Nasal Trauma, Bleeding Gums, Dry Mouth, Dysphagia - Cardiovascular Cardiovascular: Dyspnea, Dyspnea on Exertion, Edema, Orthopnea, Pedal Edema - Respiratory Respiratory: Cough, Dyspnea. absent: Wheezing, Snoring - Gastrointestinal Gastrointestinal: absent: Constipation, Cramping, Diarrhea, Nausea, Vomiting - Genitourinary Genitourinary: absent: Hematuria, Pyuria, Nocturia, Bladder Distension - Musculoskeletal Musculoskeletal: absent: Arthralgias, Joint Swelling, Muscle Weakness - Integumentary Integumentary: absent: Pruritus, Rash, Skin Pain - Neurological Neurological: absent: Dizziness, Numbness, Memory Loss, Sensory Deficit - Psychiatric Psychiatric: absent: Anxiety, Change in Appetite, Memory Loss - Endocrine Endocrine: absent: Fatigue, Flushing, Heat Intolorance, Palpitations - Hematologic/Lymphatic Hematologic: absent: Easy Bleeding, Easy Bruising Past Patient History - Infectious Disease Hx of Infectious Diseases: None - Past Medical History & Family History Past Medical History?: Yes Past Family History: Reviewed and not pertinent - Past Social History Smoking Status: Light Smoker < 10 Cigarettes Daily Alcohol: None Drugs: Denies Home Situation {Lives}: With Family - CARDIAC Hx Hypercholesterolemia: Yes Hx Hypertension: Yes - PULMONARY Hx Respiratory Disorders: No - NEUROLOGICAL Hx Neurological Disorder: No - HEENT Hx HEENT Problems: No - RENAL Hx Chronic Kidney Disease: No - ENDOCRINE/METABOLIC Hx Endocrine Disorders: Yes Hx Diabetes Mellitus Type 2: Yes - HEMATOLOGICAL/ONCOLOGICAL Hx Blood Disorders: No - INTEGUMENTARY Hx Dermatological Problems: No - MUSCULOSKELETAL/RHEUMATOLOGICAL Hx Musculoskeletal Disorders: No Hx Falls: No Hx Gout: Yes - GASTROINTESTINAL Hx Gastrointestinal Disorders: No - GENITOURINARY/GYNECOLOGICAL Hx Genitourinary Disorders: No - PSYCHIATRIC Hx Substance Use: No - SURGICAL HISTORY Other/Comment: left neck - CAROTIDENDARTERECTOMY - ANESTHESIA Hx Anesthesia Reactions: No Meds Allergies/Adverse Reactions: Allergies Allergy/AdvReac Type Severity Reaction Status Date / Time shellfish derived Allergy Verified 06/11/18 10:19 seafood Allergy Uncoded 06/11/18 10:19 - Medications Medications: Current Medications Aspirin (Aspirin Chewable) 81 mg PO DAILY [facility] Bumetanide (Bumex) 1 mg PO BID [facility] Calcitriol (Rocaltrol) 0.5 mcg PO DAILY [facility] Calcium Acetate (Phoslo) 667 mg PO BIDCC [facility] Clopidogrel Bisulfate (Plavix) 75 mg PO DAILY [facility] Doxycycline Hyclate (Doryx) 100 mg PO Q12H [facility]; Protocol Stop: 06/14/18 09:31 Heparin Sodium/Sodium Chloride (Heparin 76608 Units/250ml 1/2 Normal Saline) 25 ,000 units in 250 mls @ 7.144 mls/hr IV .Q24H PRN; Protocol PRN Reason: PROTOCOL Last Admin: 06/11/18 17:25 Dose: 9 units/kg/hr, 7.144 mls/hr Ceftriaxone Sodium 1 gm/ (Sodium Chloride) 100 mls @ 100 mls/hr IVPB DAILY [facility]; Protocol Insulin Human Regular (Novolin R) 0 unit SC ACHS [facility]; Protocol Last Admin: 06/12/18 07:58 Dose: Not Given Metolazone (Zaroxolyn) 10 mg PO DAILY [facility] Metoprolol Tartrate (Lopressor) 12.5 mg PO BID [facility] Pantoprazole Sodium (Protonix Ec Tab) 40 mg PO DAILY [facility] Rosuvastatin Calcium (Crestor) 10 mg PO HS [facility] Last Admin: 06/11/18 21:50 Dose: 10 mg Physical Exam - Constitutional Appears: Non-toxic, No Acute Distress - Head Exam Head Exam: ATRAUMATIC, NORMAL INSPECTION - Eye Exam Eye Exam: EOMI, Normal appearance - ENT Exam ENT Exam: Mucous Membranes Moist, Normal Oropharynx - Neck Exam Neck exam: Negative for: Lymphadenopathy, Thyromegaly - Respiratory Exam Respiratory Exam: Rales, Rhonchi - Cardiovascular Exam Cardiovascular Exam: +S1, +S2. absent: Rubs - GI/Abdominal Exam GI & Abdominal Exam: Normal Bowel Sounds, Soft - Extremities Exam Extremities exam: Positive for: pedal edema. Negative for: tenderness - Back Exam Back exam: absent: rash noted, tenderness - Neurological Exam Neurological exam: CN II-XII Intact, Oriented x3 - Psychiatric Exam Psychiatric exam: Normal Affect, Normal Mood - Skin Skin Exam: Dry, Intact Results - Vital Signs Recent Vital Signs: Last Vital Signs Temp 98.6 F 06/12/18 08:00 Pulse 93 H 06/12/18 09:12 Resp 31 H 06/12/18 09:12 BP 144/66 06/12/18 09:12 Pulse Ox 99 06/12/18 09:12 - Labs Result Diagrams: 06/12/18 05:34 06/12/18 05:34 Labs: Laboratory Results - last 24 hr 06/11/18 06/11/18 06/11/18 10:32 10:33 10:33 WBC 10.7 RBC 3.64 L Hgb 10.5 L Hct 30.7 L MCV 84.1 MCH 28.8 MCHC 34.2 RDW 16.3 H Plt Count 331 D MPV 7.8 Neut % (Auto) 81.5 H Lymph % (Auto) 7.5 L [place] % (Auto) 10.0 Eos % (Auto) 0.1 Baso % (Auto) 0.9 Neut # (Auto) 8.7 H Lymph # (Auto) 0.8 L [place] # (Auto) 1.1 H Eos # (Auto) 0.0 Baso # (Auto) 0.1 Neutrophils % (Manual) 87 H Band Neutrophils % 1 Lymphocytes % (Manual) 4 L Monocytes % (Manual) 8 Platelet Estimate Normal Polychromasia Slight Hypochromasia (manual) Slight Anisocytosis (manual) Slight PT 13.0 H INR 1.2 APTT 33 D-Dimer, Quantitative 473 H Puncture Site pCO2 pO2 23 L HCO3 ABG pH ABG Total CO2 ABG O2 Saturation ABG Base Excess ABG Hemoglobin ABG Carboxyhemoglobin POC ABG HHb (Measured) ABG Methemoglobin [place] Test VBG pH 7.32 VBG pCO2 38 L VBG HCO3 18.5 VBG Total CO2 20.8 L VBG O2 Sat (Calc) 44.2 VBG Base Excess -6.0 L VBG Potassium 3.9 Hgb O2 Saturation Sodium 122.0 L Chloride 90.0 L Glucose 206 H Lactate 1.7 FiO2 Inspiratory BiPAP Expiratory BiPAP Potassium Carbon Dioxide Anion Gap BUN Creatinine Est GFR ( Amer) Est GFR (Non-Af Amer) POC Glucose (mg/dL) Random Glucose Hemoglobin A1c Calcium Phosphorus Magnesium Total Bilirubin AST ALT Alkaline Phosphatase CK-MB (Mass) Troponin I NT-Pro-B Natriuret Pep Total Protein Albumin Globulin Albumin/Globulin Ratio Triglycerides Cholesterol LDL Cholesterol Direct HDL Cholesterol Venous Blood Potassium 3.9 Influenza Typ A,B (EIA) Blood Type Antibody Screen 06/11/18 06/11/18 06/11/18 10:33 10:33 10:33 WBC RBC Hgb Hct MCV MCH MCHC RDW Plt Count MPV Neut % (Auto) Lymph % (Auto) [place] % (Auto) Eos % (Auto) Baso % (Auto) Neut # (Auto) Lymph # (Auto) [place] # (Auto) Eos # (Auto) Baso # (Auto) Neutrophils % (Manual) Band Neutrophils % Lymphocytes % (Manual) Monocytes % (Manual) Platelet Estimate Polychromasia Hypochromasia (manual) Anisocytosis (manual) PT INR APTT D-Dimer, Quantitative Puncture Site pCO2 pO2 HCO3 ABG pH ABG Total CO2 ABG O2 Saturation ABG Base Excess ABG Hemoglobin ABG Carboxyhemoglobin POC ABG HHb (Measured) ABG Methemoglobin [place] Test VBG pH VBG pCO2 VBG HCO3 VBG Total CO2 VBG O2 Sat (Calc) VBG Base Excess VBG Potassium Hgb O2 Saturation Sodium 123 L Chloride 87 L Glucose Lactate FiO2 Inspiratory BiPAP Expiratory BiPAP Potassium 4.0 Carbon Dioxide 19 L Anion Gap 22 H BUN 41 H Creatinine 2.4 H Est GFR ( Amer) 34 Est GFR (Non-Af Amer) 28 POC Glucose (mg/dL) Random Glucose 200 H Hemoglobin A1c 6.7 H Calcium 9.0 Phosphorus Magnesium Total Bilirubin 1.1 AST 28 ALT 24 Alkaline Phosphatase 114 CK-MB (Mass) 4.77 H Troponin I 0.1230 H* NT-Pro-B Natriuret Pep 4160 H Total Protein 8.2 Albumin 4.4 Globulin 3.8 Albumin/Globulin Ratio 1.2 Triglycerides 67 Cholesterol 143 LDL Cholesterol Direct 64 HDL Cholesterol 52 Venous Blood Potassium Influenza Typ A,B (EIA) Blood Type O POSITIVE Antibody Screen Negative 06/11/18 06/11/18 06/11/18 10:45 11:25 16:41 WBC RBC Hgb Hct MCV MCH MCHC RDW Plt Count MPV Neut % (Auto) Lymph % (Auto) [place] % (Auto) Eos % (Auto) Baso % (Auto) Neut # (Auto) Lymph # (Auto) [place] # (Auto) Eos # (Auto) Baso # (Auto) Neutrophils % (Manual) Band Neutrophils % Lymphocytes % (Manual) Monocytes % (Manual) Platelet Estimate Polychromasia Hypochromasia (manual) Anisocytosis (manual) PT INR APTT D-Dimer, Quantitative Puncture Site Rra pCO2 35 pO2 86 HCO3 18.4 L ABG pH 7.30 L ABG Total CO2 18.3 L ABG O2 Saturation 96.7 ABG Base Excess -8.4 L ABG Hemoglobin 10.0 L ABG Carboxyhemoglobin 1.1 POC ABG HHb (Measured) 3.3 ABG Methemoglobin 0.3 [place] Test Pos VBG pH VBG pCO2 VBG HCO3 VBG Total CO2 VBG O2 Sat (Calc) VBG Base Excess VBG Potassium Hgb O2 Saturation 95.3 Sodium Chloride Glucose Lactate FiO2 60.0 Inspiratory BiPAP 12 Expiratory BiPAP 6 Potassium Carbon Dioxide Anion Gap BUN Creatinine Est GFR ( Amer) Est GFR (Non-Af Amer) POC Glucose (mg/dL) 246 H Random Glucose Hemoglobin A1c Calcium Phosphorus Magnesium Total Bilirubin AST ALT Alkaline Phosphatase CK-MB (Mass) Troponin I NT-Pro-B Natriuret Pep Total Protein Albumin Globulin Albumin/Globulin Ratio Triglycerides Cholesterol LDL Cholesterol Direct HDL Cholesterol Venous Blood Potassium Influenza Typ A,B (EIA) Negative for flu a/b Blood Type Antibody Screen 12/07/18 12/07/18 12/08/18 20:58 23:51 00:27 WBC RBC Hgb Hct MCV MCH MCHC RDW Plt Count MPV Neut % (Auto) Lymph % (Auto) [place] % (Auto) Eos % (Auto) Baso % (Auto) Neut # (Auto) Lymph # (Auto) [place] # (Auto) Eos # (Auto) Baso # (Auto) Neutrophils % (Manual) Band Neutrophils % Lymphocytes % (Manual) Monocytes % (Manual) Platelet Estimate Polychromasia Hypochromasia (manual) Anisocytosis (manual) PT INR APTT 59 H D D-Dimer, Quantitative Puncture Site pCO2 pO2 HCO3 ABG pH ABG Total CO2 ABG O2 Saturation ABG Base Excess ABG Hemoglobin ABG Carboxyhemoglobin POC ABG HHb (Measured) ABG Methemoglobin [place] Test VBG pH VBG pCO2 VBG HCO3 VBG Total CO2 VBG O2 Sat (Calc) VBG Base Excess VBG Potassium Hgb O2 Saturation Sodium Chloride Glucose Lactate FiO2 Inspiratory BiPAP Expiratory BiPAP Potassium Carbon Dioxide Anion Gap BUN Creatinine Est GFR ( Amer) Est GFR (Non-Af Amer) POC Glucose (mg/dL) 189 H 157 H Random Glucose Hemoglobin A1c Calcium Phosphorus Magnesium Total Bilirubin AST ALT Alkaline Phosphatase CK-MB (Mass) Troponin I NT-Pro-B Natriuret Pep Total Protein Albumin Globulin Albumin/Globulin Ratio Triglycerides Cholesterol LDL Cholesterol Direct HDL Cholesterol Venous Blood Potassium Influenza Typ A,B (EIA) Blood Type Antibody Screen 06/12/18 06/12/18 06/12/18 05:34 05:34 05:34 WBC 12.1 H RBC 3.57 L Hgb 9.7 L Hct 29.1 L MCV 81.7 D MCH 27.3 MCHC 33.4 RDW 16.5 H Plt Count 347 MPV 8.1 Neut % (Auto) 75.4 H Lymph % (Auto) 10.6 L [place] % (Auto) 13.6 H Eos % (Auto) 0.0 Baso % (Auto) 0.4 Neut # (Auto) 9.1 H Lymph # (Auto) 1.3 [place] # (Auto) 1.6 H Eos # (Auto) 0.0 Baso # (Auto) 0.1 Neutrophils % (Manual) Band Neutrophils % Lymphocytes % (Manual) Monocytes % (Manual) Platelet Estimate Polychromasia Hypochromasia (manual) Anisocytosis (manual) PT 13.3 H INR 1.2 APTT 57 H D-Dimer, Quantitative Puncture Site pCO2 pO2 HCO3 ABG pH ABG Total CO2 ABG O2 Saturation ABG Base Excess ABG Hemoglobin ABG Carboxyhemoglobin POC ABG HHb (Measured) ABG Methemoglobin [place] Test VBG pH VBG pCO2 VBG HCO3 VBG Total CO2 VBG O2 Sat (Calc) VBG Base Excess VBG Potassium Hgb O2 Saturation Sodium 122 L Chloride 84 L Glucose Lactate FiO2 Inspiratory BiPAP Expiratory BiPAP Potassium 3.4 L Carbon Dioxide 17 L Anion Gap 25 H BUN 54 H Creatinine 2.5 H Est GFR ( Amer) 33 Est GFR (Non-Af Amer) 27 POC Glucose (mg/dL) Random Glucose 156 H Hemoglobin A1c Calcium 8.6 Phosphorus 5.8 H Magnesium 2.1 Total Bilirubin 0.7 AST 37 ALT 20 L Alkaline Phosphatase 85 CK-MB (Mass) Troponin I NT-Pro-B Natriuret Pep Total Protein 7.8 Albumin 4.1 Globulin 3.6 Albumin/Globulin Ratio 1.1 Triglycerides Cholesterol LDL Cholesterol Direct HDL Cholesterol Venous Blood Potassium Influenza Typ A,B (EIA) Blood Type Antibody Screen 06/12/18 07:35 WBC RBC Hgb Hct MCV MCH MCHC RDW Plt Count MPV Neut % (Auto) Lymph % (Auto) [place] % (Auto) Eos % (Auto) Baso % (Auto) Neut # (Auto) Lymph # (Auto) [place] # (Auto) Eos # (Auto) Baso # (Auto) Neutrophils % (Manual) Band Neutrophils % Lymphocytes % (Manual) Monocytes % (Manual) Platelet Estimate Polychromasia Hypochromasia (manual) Anisocytosis (manual) PT INR APTT D-Dimer, Quantitative Puncture Site pCO2 pO2 HCO3 ABG pH ABG Total CO2 ABG O2 Saturation ABG Base Excess ABG Hemoglobin ABG Carboxyhemoglobin POC ABG HHb (Measured) ABG Methemoglobin [place] Test VBG pH VBG pCO2 VBG HCO3 VBG Total CO2 VBG O2 Sat (Calc) VBG Base Excess VBG Potassium Hgb O2 Saturation Sodium Chloride Glucose Lactate FiO2 Inspiratory BiPAP Expiratory BiPAP Potassium Carbon Dioxide Anion Gap BUN Creatinine Est GFR ( Amer) Est GFR (Non-Af Amer) POC Glucose (mg/dL) 147 H Random Glucose Hemoglobin A1c Calcium Phosphorus Magnesium Total Bilirubin AST ALT Alkaline Phosphatase CK-MB (Mass) Troponin I NT-Pro-B Natriuret Pep Total Protein Albumin Globulin Albumin/Globulin Ratio Triglycerides Cholesterol LDL Cholesterol Direct HDL Cholesterol Venous Blood Potassium Influenza Typ A,B (EIA) Blood Type Antibody Screen Assessment & Plan (1) CHF (congestive heart failure) Status: Acute (2) Acute renal failure Status: Acute (3) Diabetes mellitus Status: Acute (4) HLD (hyperlipidemia) Status: Acute (5) HTN (hypertension) Status: Acute (6) Hyponatremia Status: Acute - Assessment and Plan (Free Text) Assessment: Acute kidney injury on known ckd stage 3 likely due to acute cardio renal syndrome Hyponatremia due to heart failure, possibility of thiazide induced as well due to recent change in outpatient setting Initial evaluation to include urine analysis, urine for protein and creatinine Urine na, osm Serum osm Suggest change to loop diuretic IV infusion for increased negative balance Cardiology evaluation needed Suggest holding on any further BLAYNE evaluation / creation until patient stable and ckd reevaluated
[2018-06-12] MEDS: Pantoprazole 40 mg EC Tab PO SCH (10:54)
[2018-06-12] MEDS: metOLazone 5 MG TAB PO SCH (10:59)
[2018-06-12 12:05] LABS: URIC ACID 8.1 mg/dL (3.5-8.5)
--- NOTE | 2018-06-12 18:53 | CP.PCM.HP ---
History of Present Illness - History of Present Illness History of Present Illness: CC: Shortness of breath HPI: Pt is a 57yo M with PMH HTN, CKD, DM, BPH presents to ED for shortness of breath at rest since Thursday, associated with nonproductive cough. Endorses swelling the the bilateral legs since thursday. He denies chest pain, dizziness, nausea, vomiting. He reports taking his medications as prescribed. He denies using any breathing treatments or oxygen at home. Pt denies eating food with high sodium content. He endorses orthopnea and requires multiple pillows to sleep. Pt denies fever, chills, abdominal pain, diarrhea, dysuria. A 12 point ROS was reviewed and is otherwise unremarkable. PMD: [place] PMHx: HTN, CKD, DM, BPH PSH: L carotid endarectomy Meds: as per MAR Allx: Shellfish SHx: 15-pack year smoking history, denies etoh or illicit drug use FHx: father with heart disease Present on Admission - Present on Admission Any Indicators Present on Admission: No Review of Systems - Review of Systems All systems: reviewed and no additional remarkable complaints except (as per HPI) Past Patient History - Infectious Disease Hx of Infectious Diseases: None - Past Medical History & Family History Past Medical History?: Yes Past Family History: Reviewed and not pertinent - Past Social History Smoking Status: Light Smoker < 10 Cigarettes Daily Alcohol: None Drugs: Denies Home Situation {Lives}: With Family - CARDIAC Hx Hypercholesterolemia: Yes Hx Hypertension: Yes - PULMONARY Hx Respiratory Disorders: No - NEUROLOGICAL Hx Neurological Disorder: No - HEENT Hx HEENT Problems: No - RENAL Hx Chronic Kidney Disease: No - ENDOCRINE/METABOLIC Hx Diabetes Mellitus Type 2: Yes - HEMATOLOGICAL/ONCOLOGICAL Hx Blood Disorders: No - INTEGUMENTARY Hx Dermatological Problems: No - MUSCULOSKELETAL/RHEUMATOLOGICAL Hx Arthritis: Yes (Gout) - GASTROINTESTINAL Hx Gastrointestinal Disorders: No - GENITOURINARY/GYNECOLOGICAL Hx Genitourinary Disorders: No - PSYCHIATRIC Hx Substance Use: No - SURGICAL HISTORY Other/Comment: left neck - CAROTIDENDARTERECTOMY - ANESTHESIA Hx Anesthesia Reactions: No Meds Allergies/Adverse Reactions: Allergies Allergy/AdvReac Type Severity Reaction Status Date / Time shellfish derived Allergy Verified 06/11/18 10:19 seafood Allergy Uncoded 06/11/18 10:19 Physical Exam - Constitutional Appears: Non-toxic, No Acute Distress - Head Exam Head Exam: ATRAUMATIC, NORMAL INSPECTION - Eye Exam Eye Exam: EOMI, Normal appearance - ENT Exam ENT Exam: Mucous Membranes Moist - Respiratory Exam Respiratory Exam: Decreased Breath Sounds, NORMAL BREATHING PATTERN. absent: Rales, Rhonchi, Wheezes - Cardiovascular Exam Cardiovascular Exam: REGULAR RHYTHM, +S1, +S2 - GI/Abdominal Exam GI & Abdominal Exam: Distended, Normal Bowel Sounds, Soft. absent: Tenderness - Rectal Exam Rectal Exam: NORMAL INSPECTION - Extremities Exam Extremities exam: Positive for: pedal edema. Negative for: calf tenderness - Back Exam Back exam: NORMAL INSPECTION - Neurological Exam Neurological exam: Alert, Oriented x3 - Psychiatric Exam Psychiatric exam: Normal Affect, Normal Mood - Skin Skin Exam: Dry, Normal Color, Warm Results - Vital Signs Recent Vital Signs: Last Vital Signs Temp 98.1 F 06/12/18 16:00 Pulse 93 H 06/12/18 17:18 Resp 25 H 06/12/18 12:00 BP 141/60 06/12/18 11:34 Pulse Ox 93 L 06/12/18 17:18 - Labs Result Diagrams: 06/12/18 05:34 06/12/18 05:34 Labs: Laboratory Results - last 24 hr 06/11/18 06/11/18 06/12/18 20:58 23:51 00:27 WBC RBC Hgb Hct MCV MCH MCHC RDW Plt Count MPV Neut % (Auto) Lymph % (Auto) [place] % (Auto) Eos % (Auto) Baso % (Auto) Neut # (Auto) Lymph # (Auto) [place] # (Auto) Eos # (Auto) Baso # (Auto) PT INR APTT 59 H D Sodium Potassium Chloride Carbon Dioxide Anion Gap BUN Creatinine Est GFR ( Amer) Est GFR (Non-Af Amer) POC Glucose (mg/dL) 189 H 157 H Random Glucose Uric Acid Calcium Phosphorus Magnesium Total Bilirubin AST ALT Alkaline Phosphatase Total Protein Albumin Globulin Albumin/Globulin Ratio 06/12/18 06/12/18 06/12/18 05:34 05:34 05:34 WBC 12.1 H RBC 3.57 L Hgb 9.7 L Hct 29.1 L MCV 81.7 D MCH 27.3 MCHC 33.4 RDW 16.5 H Plt Count 347 MPV 8.1 Neut % (Auto) 75.4 H Lymph % (Auto) 10.6 L [place] % (Auto) 13.6 H Eos % (Auto) 0.0 Baso % (Auto) 0.4 Neut # (Auto) 9.1 H Lymph # (Auto) 1.3 [place] # (Auto) 1.6 H Eos # (Auto) 0.0 Baso # (Auto) 0.1 PT 13.3 H INR 1.2 APTT 57 H Sodium 122 L Potassium 3.4 L Chloride 84 L Carbon Dioxide 17 L Anion Gap 25 H BUN 54 H Creatinine 2.5 H Est GFR ( Amer) 33 Est GFR (Non-Af Amer) 27 POC Glucose (mg/dL) Random Glucose 156 H Uric Acid 8.1 Calcium 8.6 Phosphorus 5.8 H Magnesium 2.1 Total Bilirubin 0.7 AST 37 ALT 20 L Alkaline Phosphatase 85 Total Protein 7.8 Albumin 4.1 Globulin 3.6 Albumin/Globulin Ratio 1.1 06/12/18 06/12/18 06/12/18 07:35 11:29 16:45 WBC RBC Hgb Hct MCV MCH MCHC RDW Plt Count MPV Neut % (Auto) Lymph % (Auto) [place] % (Auto) Eos % (Auto) Baso % (Auto) Neut # (Auto) Lymph # (Auto) [place] # (Auto) Eos # (Auto) Baso # (Auto) PT INR APTT Sodium Potassium Chloride Carbon Dioxide Anion Gap BUN Creatinine Est GFR ( Amer) Est GFR (Non-Af Amer) POC Glucose (mg/dL) 147 H 158 H 173 H Random Glucose Uric Acid Calcium Phosphorus Magnesium Total Bilirubin AST ALT Alkaline Phosphatase Total Protein Albumin Globulin Albumin/Globulin Ratio Assessment & Plan - Assessment and Plan (Free Text) Assessment: This is a 57 year old male with PMH HTN, DM, CKD, BPH presents to ED for shortness of breath, admitted to ICU for acute CHF exacerbation. CXR showed venous congestion and interstitial edema. Plan: CHF exacerbation - pt with shortness of breath - CXR 06/11: RLL atelectasis, venous congestion, interstitial edema given azithromycin 500mg IV and rocephin 1g IV in ED - ECHO: f/u report - EKG: NSR, LBBB - troponin elevated, 0.123 - CKMB elevated, 4.77 - BNP elevated, 4160 - d-dimer elevated, 473 likely secondary to renal failure - given metalozone 10mg twice in ED - given butamex 2mg IVP and 1mg IVP in ED - DAPT with ASA and plavix daily - crestor 10mg PO HS DAVID on CKD - BUN/Cr 41/2.4 - consider AVF placement - Vascular Sx consulted, Dr. Casiano - nephrology, Dr. Hidalgo, consulted - monitor I/Os DM 2 - HbA1c 6.7 - low dose sliding scale - accuchecks achs PPX: GI: protonix 40 PO DVT: SCDs HHD
[2018-06-12 19:48] LABS: CREATININE, RANDOM URINE 26.3 mg/dL
--- NOTE | 2018-06-12 22:24 | CP.PCM.CON ---
History of Present Illness - History of Present Illness History of Present Illness: CC: Abnormal Troponin/Dyspnea HPI: Pt is a 57yo M with PMH HTN, CKD, DM, BPH presents to ED for shortness of breath at rest since Thursday, associated with nonproductive cough. Endorses swelling the the bilateral legs since thursday. He denies chest pain, dizziness, nausea, vomiting. He reports taking his medications as prescribed. He denies using any breathing treatments or oxygen at home. Pt denies eating food with high sodium content. He endorses orthopnea and requires multiple pillows to sleep. Pt denies fever, chills, abdominal pain, diarrhea, dysuria. A 12 point ROS was reviewed and is otherwise unremarkable. PMD: Cabrera PMHx: HTN, CKD, DM, BPH PSH: L carotid endarectomy Meds: as per MAR Allx: Shellfish SHx: 15-pack year smoking history, denies etoh or illicit drug use FHx: father with heart disease Present on Admission - Present on Admission Any Indicators Present on Admission: No Review of Systems - Review of Systems All systems: reviewed and no additional remarkable complaints except (as per HPI) Meds Allergies/Adverse Reactions: Allergies Allergy/AdvReac Type Severity Reaction Status Date / Time shellfish derived Allergy Verified 06/11/18 10:19 seafood Allergy Uncoded 06/11/18 10:19 Physical Exam - Constitutional Appears: Non-toxic, No Acute Distress - Head Exam Head Exam: ATRAUMATIC, NORMAL INSPECTION - Eye Exam Eye Exam: EOMI, Normal appearance - ENT Exam ENT Exam: Mucous Membranes Moist - Respiratory Exam Respiratory Exam: Decreased Breath Sounds, NORMAL BREATHING PATTERN. absent: Rales, Rhonchi, Wheezes - Cardiovascular Exam Cardiovascular Exam: REGULAR RHYTHM, +S1, +S2 - GI/Abdominal Exam GI & Abdominal Exam: Distended, Normal Bowel Sounds, Soft. absent: Tenderness - Rectal Exam Rectal Exam: NORMAL INSPECTION - Extremities Exam Extremities exam: Positive for: pedal edema. Negative for: calf tenderness - Back Exam Back exam: NORMAL INSPECTION - Neurological Exam Neurological exam: Alert, Oriented x3 - Psychiatric Exam Psychiatric exam: Normal Affect, Normal Mood - Skin Skin Exam: Dry, Normal Color, Warm Results - Vital Signs Recent Vital Signs: Last Vital Signs Temp 98.1 F 06/12/18 16:00 Pulse 93 H 06/12/18 17:18 Resp 25 H 12/08/18 12:00 BP 141/60 06/12/18 11:34 Pulse Ox 93 L 06/12/18 17:18 - Labs Result Diagrams: 06/12/18 05:34 06/12/18 05:34 Labs: Laboratory Results - last 24 hr 06/11/18 06/11/18 06/12/18 20:58 23:51 00:27 WBC RBC Hgb Hct MCV MCH MCHC RDW Plt Count MPV Neut % (Auto) Lymph % (Auto) [place] % (Auto) Eos % (Auto) Baso % (Auto) Neut # (Auto) Lymph # (Auto) [place] # (Auto) Eos # (Auto) Baso # (Auto) PT INR APTT 59 H D Sodium Potassium Chloride Carbon Dioxide Anion Gap BUN Creatinine Est GFR ( Amer) Est GFR (Non-Af Amer) POC Glucose (mg/dL) 189 H 157 H Random Glucose Uric Acid Calcium Phosphorus Magnesium Total Bilirubin AST ALT Alkaline Phosphatase Total Protein Albumin Globulin Albumin/Globulin Ratio 06/12/18 06/12/18 06/12/18 05:34 05:34 05:34 WBC 12.1 H RBC 3.57 L Hgb 9.7 L Hct 29.1 L MCV 81.7 D MCH 27.3 MCHC 33.4 RDW 16.5 H Plt Count 347 MPV 8.1 Neut % (Auto) 75.4 H Lymph % (Auto) 10.6 L [place] % (Auto) 13.6 H Eos % (Auto) 0.0 Baso % (Auto) 0.4 Neut # (Auto) 9.1 H Lymph # (Auto) 1.3 [place] # (Auto) 1.6 H Eos # (Auto) 0.0 Baso # (Auto) 0.1 PT 13.3 H INR 1.2 APTT 57 H Sodium 122 L Potassium 3.4 L Chloride 84 L Carbon Dioxide 17 L Anion Gap 25 H BUN 54 H Creatinine 2.5 H Est GFR ( Amer) 33 Est GFR (Non-Af Amer) 27 POC Glucose (mg/dL) Random Glucose 156 H Uric Acid 8.1 Calcium 8.6 Phosphorus 5.8 H Magnesium 2.1 Total Bilirubin 0.7 AST 37 ALT 20 L Alkaline Phosphatase 85 Total Protein 7.8 Albumin 4.1 Globulin 3.6 Albumin/Globulin Ratio 1.1 06/12/18 06/12/18 06/12/18 07:35 11:29 16:45 WBC RBC Hgb Hct MCV MCH MCHC RDW Plt Count MPV Neut % (Auto) Lymph % (Auto) [place] % (Auto) Eos % (Auto) Baso % (Auto) Neut # (Auto) Lymph # (Auto) [place] # (Auto) Eos # (Auto) Baso # (Auto) PT INR APTT Sodium Potassium Chloride Carbon Dioxide Anion Gap BUN Creatinine Est GFR ( Amer) Est GFR (Non-Af Amer) POC Glucose (mg/dL) 147 H 158 H 173 H Random Glucose Uric Acid Calcium Phosphorus Magnesium Total Bilirubin AST ALT Alkaline Phosphatase Total Protein Albumin Globulin Albumin/Globulin Ratio Assessment & Plan - Assessment and Plan (Free Text) Assessment: This is a 57 year old male with PMH HTN, DM, CKD, BPH presents to ED for shortness of breath, admitted to ICU for acute CHF exacerbation. CXR showed venous congestion and interstitial edema. Plan: CHF exacerbation - pt with shortness of breath - CXR 06/11: RLL atelectasis, venous congestion, interstitial edema given azithromycin 500mg IV and rocephin 1g IV in ED - ECHO: Pending - EKG: NSR, LBBB - troponin elevated, 0.123 - CKMB elevated, 4.77 - BNP elevated, 4160 - d-dimer elevated, 473 likely secondary to renal failure - given metalozone 10mg twice in ED - given butamex 2mg IVP and 1mg IVP in ED - DAPT with ASA and plavix daily - crestor 10mg PO HS DAVID on CKD - BUN/Cr 41/2.4 - consider AVF placement - Vascular Sx consulted, Dr. Casiano - nephrology, Dr. Hidalgo, consulted - monitor I/Os DM 2 - HbA1c 6.7 - low dose sliding scale - accuchecks achs PPX: GI: protonix 40 PO DVT: SCDs HHD Eventhough Mildly elevated Trop could be secondary to CKD and CHF. Due to m mckenzie risk factors patient will benefit from cardiac cath Patient stated his merchandising coordinator is Dr. Cristina. Will change the consult to Dr. Cristina for further management Past Patient History - Infectious Disease Hx of Infectious Diseases: None - Past Medical History & Family History Past Medical History?: Yes Past Family History: Reviewed and not pertinent - Past Social History Smoking Status: Light Smoker < 10 Cigarettes Daily Alcohol: None Drugs: Denies Home Situation {Lives}: With Family - CARDIAC Hx Hypercholesterolemia: Yes Hx Hypertension: Yes - PULMONARY Hx Respiratory Disorders: No - NEUROLOGICAL Hx Neurological Disorder: No - HEENT Hx HEENT Problems: No - RENAL Hx Chronic Kidney Disease: No - ENDOCRINE/METABOLIC Hx Diabetes Mellitus Type 2: Yes - HEMATOLOGICAL/ONCOLOGICAL Hx Blood Disorders: No - INTEGUMENTARY Hx Dermatological Problems: No - MUSCULOSKELETAL/RHEUMATOLOGICAL Hx Arthritis: Yes (Gout) - GASTROINTESTINAL Hx Gastrointestinal Disorders: No - GENITOURINARY/GYNECOLOGICAL Hx Genitourinary Disorders: No - PSYCHIATRIC Hx Substance Use: No - SURGICAL HISTORY Other/Comment: left neck - CAROTIDENDARTERECTOMY - ANESTHESIA Hx Anesthesia Reactions: No Meds Allergies/Adverse Reactions: Allergies Allergy/AdvReac Type Severity Reaction Status Date / Time shellfish derived Allergy Verified 06/11/18 10:19 seafood Allergy Uncoded 06/11/18 10:19 - Medications Medications: Current Medications Aspirin (Aspirin Chewable) 81 mg PO DAILY [facility] Last Admin: 06/12/18 10:54 Dose: 81 mg Calcitriol (Rocaltrol) 0.5 mcg PO DAILY [facility] Last Admin: 06/12/18 10:53 Dose: 0.5 mcg [facility] Last Admin: 06/12/18 16:42 Dose: 667 mg Clopidogrel Bisulfate (Plavix) 75 mg PO DAILY [facility] Last Admin: 06/12/18 10:54 Dose: 75 mg Doxycycline Hyclate (Doryx) 100 mg PO Q12H [facility]; Protocol Stop: 06/14/18 09:31 Last Admin: 06/12/18 21:36 Dose: 100 mg Furosemide (Lasix) 80 mg IVP Q12 [facility] Last Admin: 06/12/18 21:36 Dose: 80 mg Heparin Sodium/Sodium Chloride (Heparin 95609 Units/250ml 1/2 Normal Saline) 25,000 units in 250 mls @ 7.144 mls/hr IV .Q24H PRN; Protocol PRN Reason: PROTOCOL Last Admin: 06/11/18 17:25 Dose: 9 units/kg/hr, 7.144 mls/hr Ceftriaxone Sodium 1 gm/ (Sodium Chloride) 100 mls @ 100 mls/hr IVPB DAILY [facility]; Protocol Last Admin: 06/12/18 10:55 Dose: 100 mls/hr Insulin Human Regular (Novolin R) 0 unit SC ACHS [facility]; Protocol Last Admin: 06/12/18 21:29 Dose: Not Given Metolazone (Zaroxolyn) 10 mg PO DAILY [facility] Last Admin: 06/12/18 10:59 Dose: 10 mg Metoprolol Tartrate (Lopressor) 12.5 mg PO BID [facility] Last Admin: 06/12/18 17:25 Dose: 12.5 mg Pantoprazole Sodium (Protonix Ec Tab) 40 mg PO DAILY [facility] Last Admin: 06/12/18 10:54 Dose: 40 mg Rosuvastatin Calcium (Crestor) 10 mg PO HS [facility] Last Admin: 06/12/18 21:36 Dose: 10 mg Results - Vital Signs Recent Vital Signs: Last Vital Signs Temp 98.6 F 06/12/18 20:00 Pulse 84 06/12/18 21:15 Resp 21 06/12/18 20:34 BP 145/63 06/12/18 21:36 Pulse Ox 99 06/12/18 20:34 - Labs Result Diagrams: 06/13/18 05:40 06/13/18 05:40 Labs: Laboratory Results - last 24 hr 06/11/18 06/12/18 06/12/18 23:51 00:27 05:34 WBC 12.1 H RBC 3.57 L Hgb 9.7 L Hct 29.1 L MCV 81.7 D MCH 27.3 MCHC 33.4 RDW 16.5 H Plt Count 347 MPV 8.1 Neut % (Auto) 75.4 H Lymph % (Auto) 10.6 L [place] % (Auto) 13.6 H Eos % (Auto) 0.0 Baso % (Auto) 0.4 Neut # (Auto) 9.1 H Lymph # (Auto) 1.3 [place] # (Auto) 1.6 H Eos # (Auto) 0.0 Baso # (Auto) 0.1 PT INR APTT 59 H D Sodium Potassium Chloride Carbon Dioxide Anion Gap BUN Creatinine Est GFR ( Amer) Est GFR (Non-Af Amer) POC Glucose (mg/dL) 157 H Random Glucose Uric Acid Calcium Phosphorus Magnesium Total Bilirubin AST ALT Alkaline Phosphatase Total Protein Albumin Globulin Albumin/Globulin Ratio Urine Osmolality Ur Random Creatinine Ur Random Sodium 06/12/18 06/12/18 06/12/18 05:34 05:34 07:35 WBC RBC Hgb Hct MCV MCH MCHC RDW Plt Count MPV Neut % (Auto) Lymph % (Auto) [place] % (Auto) Eos % (Auto) Baso % (Auto) Neut # (Auto) Lymph # (Auto) [place] # (Auto) Eos # (Auto) Baso # (Auto) PT 13.3 H INR 1.2 APTT 57 H Sodium 122 L Potassium 3.4 L Chloride 84 L Carbon Dioxide 17 L Anion Gap 25 H BUN 54 H Creatinine 2.5 H Est GFR ( Amer) 33 Est GFR (Non-Af Amer) 27 POC Glucose (mg/dL) 147 H Random Glucose 156 H Uric Acid 8.1 Calcium 8.6 Phosphorus 5.8 H Magnesium 2.1 Total Bilirubin 0.7 AST 37 ALT 20 L Alkaline Phosphatase 85 Total Protein 7.8 Albumin 4.1 Globulin 3.6 Albumin/Globulin Ratio 1.1 Urine Osmolality Ur Random Creatinine Ur Random Sodium 06/12/18 06/12/18 06/12/18 11:29 16:45 19:33 WBC RBC Hgb Hct MCV MCH MCHC RDW Plt Count MPV Neut % (Auto) Lymph % (Auto) [place] % (Auto) Eos % (Auto) Baso % (Auto) Neut # (Auto) Lymph # (Auto) [place] # (Auto) Eos # (Auto) Baso # (Auto) PT INR APTT Sodium Potassium Chloride Carbon Dioxide Anion Gap BUN Creatinine Est GFR ( Amer) Est GFR (Non-Af Amer) POC Glucose (mg/dL) 158 H 173 H Random Glucose Uric Acid Calcium Phosphorus Magnesium Total Bilirubin AST ALT Alkaline Phosphatase Total Protein Albumin Globulin Albumin/Globulin Ratio Urine Osmolality 324 Ur Random Creatinine 26.3 Ur Random Sodium 84 06/12/18 21:25 WBC RBC Hgb Hct MCV MCH MCHC RDW Plt Count MPV Neut % (Auto) Lymph % (Auto) [place] % (Auto) Eos % (Auto) Baso % (Auto) Neut # (Auto) Lymph # (Auto) [place] # (Auto) Eos # (Auto) Baso # (Auto) PT INR APTT Sodium Potassium Chloride Carbon Dioxide Anion Gap BUN Creatinine Est GFR ( Amer) Est GFR (Non-Af Amer) POC Glucose (mg/dL) 159 H Random Glucose Uric Acid Calcium Phosphorus Magnesium Total Bilirubin AST ALT Alkaline Phosphatase Total Protein Albumin Globulin Albumin/Globulin Ratio Urine Osmolality Ur Random Creatinine Ur Random Sodium
--- NOTE | 2018-06-12 22:28 | CP.PCM.PN ---
Subjective - Date & Time of Evaluation Date of Evaluation: 06/12/18 Time of Evaluation: 16:00 - Subjective Subjective: PGY 1 Medicine Progress Note for Dr. [place]. Patient seen and examined at bedside. No overnight events reported. PAtient states he feels much better. He states his breathing is improved. PAtient denies chest pain, abdominal pain, nausea, vomiting, hematuria. dysuria. Objective - Vital Signs/Intake and Output Vital Signs (last 24 hours): Temp Pulse Resp BP Pulse Ox 98.6 F 84 21 145/63 99 06/12/18 20:00 06/12/18 21:15 06/12/18 20:34 06/12/18 21:36 06/12/18 20:34 Intake and Output: 06/12/18 06/13/18 18:59 06:59 Intake Total 726.4 7.2 Output Total 0 800 Balance 726.4 -792.8 - Medications Medications: Current Medications Aspirin (Aspirin Chewable) 81 mg PO DAILY [facility] Last Admin: 06/12/18 10:54 Dose: 81 mg Calcitriol (Rocaltrol) 0.5 mcg PO DAILY [facility] Last Admin: 06/12/18 10:53 Dose: 0.5 mcg Calcium Acetate (Phoslo) 667 mg PO BIDCC [facility] Last Admin: 06/12/18 16:42 Dose: 667 mg Clopidogrel Bisulfate (Plavix) 75 mg PO DAILY [facility] Last Admin: 06/12/18 10:54 Dose: 75 mg Doxycycline Hyclate (Doryx) 100 mg PO Q12H [facility]; Protocol Stop: 06/14/18 09:31 Last Admin: 06/12/18 21:36 Dose: 100 mg Furosemide (Lasix) 80 mg IVP Q12 [facility] Last Admin: 06/12/18 21:36 Dose: 80 mg Heparin Sodium/Sodium Chloride (Heparin 43316 Units/250ml 1/2 Normal Saline) 25,000 units in 250 mls @ 7.144 mls/hr IV .Q24H PRN; Protocol PRN Reason: PROTOCOL Last Admin: 06/11/18 17:25 Dose: 9 units/kg/hr, 7.144 mls/hr Ceftriaxone Sodium 1 gm/ (Sodium Chloride) 100 mls @ 100 mls/hr IVPB DAILY [facility]; Protocol Last Admin: 06/12/18 10:55 Dose: 100 mls/hr Insulin Human Regular (Novolin R) 0 unit SC ACHS [facility]; Protocol Last Admin: 06/12/18 21:29 Dose: Not Given Metolazone (Zaroxolyn) 10 mg PO DAILY [facility] Last Admin: 06/12/18 10:59 Dose: 10 mg Metoprolol Tartrate (Lopressor) 12.5 mg PO BID [facility] Last Admin: 06/12/18 17:25 Dose: 12.5 mg Pantoprazole Sodium (Protonix Ec Tab) 40 mg PO DAILY [facility] Last Admin: 06/12/18 10:54 Dose: 40 mg Rosuvastatin Calcium (Crestor) 10 mg PO HS [facility] Last Admin: 06/12/18 21:36 Dose: 10 mg - Labs Labs: 06/12/18 05:34 06/12/18 05:34 PT 13.3 SECONDS (9.7-12.2) H 06/12/18 05:34 INR 1.2 06/12/18 05:34 APTT 57 SECONDS (21-34) H 06/12/18 05:34 - Constitutional Appears: Non-toxic, No Acute Distress - Head Exam Head Exam: NORMAL INSPECTION - Eye Exam Eye Exam: Normal appearance - ENT Exam ENT Exam: Mucous Membranes Moist - Neck Exam Neck Exam: absent: Thyromegaly Additional comments: scar on L neck, well healed - Respiratory Exam Respiratory Exam: Rales, NORMAL BREATHING PATTERN Additional comments: rales RLL - Cardiovascular Exam Cardiovascular Exam: +S1, +S2 - GI/Abdominal Exam GI & Abdominal Exam: Soft, Normal Bowel Sounds - Extremities Exam Extremities Exam: Full ROM, Normal Inspection. absent: Calf Tenderness, Pedal Edema - Back Exam Back Exam: absent: CVA tenderness (L), CVA tenderness (R) - Neurological Exam Neurological Exam: Alert, Awake, Oriented x3 - Psychiatric Exam Psychiatric exam: Normal Affect, Normal Mood - Skin Skin Exam: Dry, Normal Color, Warm Assessment and Plan - Assessment and Plan (Free Text) Assessment: This is a 57 year old male with PMH HTN, DM, CKD, BPH presents to ED for shortness of breath, admitted to ICU for acute CHF exacerbation. CXR showed venous congestion and interstitial edema. Plan: CHF exacerbation - pt with shortness of breath - CXR 06/11: RLL atelectasis, venous congestion, interstitial edema given azithromycin 500mg IV and rocephin 1g IV in ED - F/u Repeat CXR - ECHO: f/u report - EKG: NSR, LBBB - troponin elevated, 0.123 - CKMB elevated, 4.77 - BNP elevated, 4160 - d-dimer elevated, 473 likely secondary to renal failure - given metalozone 10mg twice in ED - given butamex 2mg IVP and 1mg IVP in ED - DAPT with ASA and plavix daily - crestor 10mg PO HS DAVID on CKD - BUN/Cr 54/2.5 - consider AVF placement - Vascular Sx consulted, Dr. Casiano - nephrology, Dr. Hidalgo, consulted - monitor I/Os DM 2 - HbA1c 6.7 - low dose sliding scale - accuchecks achs PPX: GI: protonix 40 PO DVT: SCDs HHD
[2018-06-13] MEDS: Heparin25000 units/250ml 1/2NS 25,000 UNITS/250 ML BAG IV PRN (00:15)
[2018-06-13 05:46] LABS: BASO # 0.2 K/uL (0.0-0.2); BASO % 1.4 % (0.0-2.0); EOS # 0.1 K/uL (0.0-0.7); EOS % 0.9 % (0.0-4.0); HEMOGLOBIN 10.8 g/dL (12.0-18.0); LYMPH # 2.7 K/uL (1.0-4.3); LYMPH % 24.5 % (20.0-40.0); MEAN CELL VOLUME 81.9 fL (80.0-94.0); MEAN CORPUSCULAR HEMOGLOBIN 27.9 pg (27.0-31.0); MEAN CORPUSCULAR HGB CONC 34.1 g/dL (33.0-37.0); MEAN PLATELET VOLUME 7.7 fL (7.2-11.7); MONO # 1.6 K/uL (0.0-0.8); MONO % 14.2 % (0.0-10.0); NEUT # 6.6 K/uL (1.8-7.0); RBC 3.87 Mil/uL (4.40-5.90); RED CELL DISTRIBUTION WIDTH 16.7 % (11.5-14.5); WHITE BLOOD COUNT 11.1 K/uL (4.8-10.8)
[2018-06-13 06:06] LABS: ALB/GLOB RATIO 1.1 (1.0-2.1); ALBUMIN 4.5 g/dL (3.5-5.0); CALCIUM 9.1 mg/dl (8.6-10.4)
--- NOTE | 2018-06-13 07:40 | CP.PCM.PN ---
Subjective - Date & Time of Evaluation Date of Evaluation: 06/13/18 Time of Evaluation: 09:25 - Subjective Subjective: PGY1 Medicine Progress Note for Dr. Cuba. patient seen and examined at bedside. No overnight events reported. Patient states he is feeling much better. Patient denies active SOB, chest pain, nausea, vomiting, heamturia, dysuria. Objective - Vital Signs/Intake and Output Vital Signs (last 24 hours): Temp Pulse Resp BP Pulse Ox 98.9 F 83 14 143/67 100 06/13/18 00:00 06/13/18 06:40 06/13/18 06:40 06/13/18 06:40 06/13/18 06:40 Intake and Output: 06/13/18 06/13/18 06:59 18:59 Intake Total 434.4 0 Output Total 3000 Balance -2565.6 0 - Medications Medications: Current Medications Aspirin (Aspirin Chewable) 81 mg PO DAILY [facility] Last Admin: 06/12/18 10:54 Dose: 81 mg Calcitriol (Rocaltrol) 0.5 mcg PO DAILY [facility] Last Admin: 06/12/18 10:53 Dose: 0.5 mcg Calcium Acetate (Phoslo) 667 mg PO BIDCC [facility] Last Admin: 06/12/18 16:42 Dose: 667 mg Clopidogrel Bisulfate (Plavix) 75 mg PO DAILY [facility] Last Admin: 06/12/18 10:54 Dose: 75 mg Doxycycline Hyclate (Doryx) 100 mg PO Q12H [facility]; Protocol Stop: 06/14/18 09:31 Last Admin: 06/12/18 21:36 Dose: 100 mg Furosemide (Lasix) 80 mg IVP Q12 [facility] Last Admin: 06/12/18 21:36 Dose: 80 mg Heparin Sodium/Sodium Chloride (Heparin 93640 Units/250ml 1/2 Normal Saline) 25,000 units in 250 mls @ 7.144 mls/hr IV .Q24H PRN; Protocol PRN Reason: PROTOCOL Last Titration: 06/13/18 07:10 Dose: 6 units/kg/hr, 4.763 mls/hr Ceftriaxone Sodium 1 gm/ (Sodium Chloride) 100 mls @ 100 mls/hr IVPB DAILY [facility]; Protocol Last Admin: 06/12/18 10:55 Dose: 100 mls/hr Insulin Human Regular (Novolin R) 0 unit SC ACHS [facility]; Protocol Last Admin: 06/12/18 21:29 Dose: Not Given Metolazone (Zaroxolyn) 10 mg PO DAILY [facility] Last Admin: 06/12/18 10:59 Dose: 10 mg Metoprolol Tartrate (Lopressor) 12.5 mg PO BID [facility] Last Admin: 06/12/18 17:25 Dose: 12.5 mg Pantoprazole Sodium (Protonix Ec Tab) 40 mg PO DAILY [facility] Last Admin: 06/12/18 10:54 Dose: 40 mg Rosuvastatin Calcium (Crestor) 10 mg PO HS [facility] Last Admin: 06/12/18 21:36 Dose: 10 mg - Labs Labs: 06/13/18 05:40 06/13/18 05:40 PT 13.3 SECONDS (9.7-12.2) H 06/12/18 05:34 INR 1.2 06/12/18 05:34 APTT 206 SECONDS (21-34) H* D 06/13/18 05:40 - Constitutional Appears: Non-toxic, No Acute Distress - Head Exam Head Exam: NORMAL INSPECTION - Eye Exam Eye Exam: Normal appearance - ENT Exam ENT Exam: Mucous Membranes Moist - Respiratory Exam Respiratory Exam: Rales, NORMAL BREATHING PATTERN Additional comments: R > L - Cardiovascular Exam Cardiovascular Exam: +S1, +S2, Murmur - GI/Abdominal Exam GI & Abdominal Exam: Soft, Normal Bowel Sounds. absent: Tenderness - Extremities Exam Extremities Exam: Full ROM, Pedal Edema. absent: Calf Tenderness - Back Exam Back Exam: absent: CVA tenderness (L), CVA tenderness (R) - Neurological Exam Neurological Exam: Alert, Awake, Oriented x3 - Psychiatric Exam Psychiatric exam: Normal Affect, Normal Mood - Skin Skin Exam: Dry, Intact, Normal Color, Warm Assessment and Plan - Assessment and Plan (Free Text) Assessment: This is a 57 year old male with PMH HTN, DM, CKD, BPH presents to ED for shortness of breath, admitted to ICU for acute CHF exacerbation. CXR showed venous congestion and interstitial edema. Plan: CHF exacerbation ? Coronary Artery disease - pt with shortness of breath - CXR 06/11: RLL atelectasis, venous congestion, interstitial edema given azithromycin 500mg IV and rocephin 1g IV in ED - Repeat CXR - plural effusion - ECHO: EF 50%, diastolic filling pressures elevated, pulmonary valve, mild incompetence, mild concentric pericardial effison, mitral mild to moderate incompentence, see full ech report - EKG: NSR, LBBB - troponin elevated, 0.123 - CKMB elevated, 4.77 - BNP elevated, 4160 - d-dimer elevated, 473 likely secondary to renal failure - DAPT with ASA and plavix daily - crestor 10mg PO HS - lasix 20 mg Q12, lisinopril 10 mg Po daily, metoprolol 12.5 mg PO BID - F/u cardio, Dr. Griffin recs DAVID on CKD - BUN/Cr 54/2.5 - consider AVF placement - Vascular Sx consulted, Dr. Casiano - nephrology, Dr. Hidalgo, consulted - monitor I/Os DM 2 - HbA1c 6.7 - low dose sliding scale - bucky cutler PPX: GI: protonix 40 PO DVT: SCDs HHD
[2018-06-13] MEDS: (Novolin R) Insulin Human Regular 100 units/ml vial SC SCH ×4 (08:04→21:49)
[2018-06-13] MEDS: metOLazone 5 MG TAB PO SCH (09:42)
[2018-06-13] MEDS: Pantoprazole 40 mg EC Tab PO SCH (09:43)
--- NOTE | 2018-06-13 11:11 | RAD ---
Date of service: 06/12/2018 HISTORY: <info_study_reason> COMPARISON: No prior. TECHNIQUE: Chest PA and lateral FINDINGS: LINES AND TUBES: None. LUNG AND PLEURA: There is interval improved aeration in the right lower lobe. There are small pleural effusions. No pneumothorax. HEART AND MEDIASTINUM: The heart is not enlarged. No aortic atherosclerotic calcification present. The hilar and mediastinal contours are within normal limits. SKELETAL STRUCTURES: The bony structures are within normal limits for the patient's age. VISUALIZED UPPER ABDOMEN: Normal. OTHER FINDINGS: None. IMPRESSION: Interval improved aeration in the right lower lobe. Small effusions.
--- NOTE | 2018-06-13 14:37 | CP.PCM.PN ---
Subjective - Date & Time of Evaluation Date of Evaluation: 06/13/18 Time of Evaluation: 13:10 - Subjective Subjective: Patient seen and evaluated Denies chest pain and breathing better Physical Exam - Constitutional Appears: Non-toxic, No Acute Distress - Head Exam Head Exam: ATRAUMATIC, NORMAL INSPECTION - Eye Exam Eye Exam: EOMI, Normal appearance - ENT Exam ENT Exam: Mucous Membranes Moist - Respiratory Exam Respiratory Exam: Decreased Breath Sounds, NORMAL BREATHING PATTERN. absent: Rales, Rhonchi, Wheezes - Cardiovascular Exam Cardiovascular Exam: REGULAR RHYTHM, +S1, +S2 - GI/Abdominal Exam GI & Abdominal Exam: Distended, Normal Bowel Sounds, Soft. absent: Tenderness - Rectal Exam Rectal Exam: NORMAL INSPECTION - Extremities Exam Extremities exam: Positive for: pedal edema. Negative for: calf tenderness - Back Exam Back exam: NORMAL INSPECTION - Neurological Exam Neurological exam: Alert, Oriented x3 - Psychiatric Exam Psychiatric exam: Normal Affect, Normal Mood - Skin Skin Exam: Dry, Normal Color, Warm Assessment & Plan - Assessment and Plan (Free Text) Assessment: This is a 57 year old male with PMH HTN, DM, CKD, BPH presents to ED for shortness of breath, admitted to ICU for acute CHF exacerbation. CXR showed venous congestion and interstitial edema. Plan: CHF exacerbation - pt with shortness of breath - CXR 06/11: RLL atelectasis, venous congestion, interstitial edema given azithromycin 500mg IV and rocephin 1g IV in ED - ECHO: Pending - EKG: NSR, LBBB - troponin elevated, 0.123 - CKMB elevated, 4.77 - BNP elevated, 4160 - d-dimer elevated, 473 likely secondary to renal failure - given metalozone 10mg twice in ED - given butamex 2mg IVP and 1mg IVP in ED - DAPT with ASA and plavix daily - crestor 10mg PO HS DAVID on CKD - BUN/Cr 41/2.4 - consider AVF placement - Vascular Sx consulted, Dr. Casiano - nephrology, Dr. Hidalgo, consulted - monitor I/Os DM 2 - HbA1c 6.7 - low dose sliding scale - accuchecks achs PPX: GI: protonix 40 PO DVT: SCDs HHD Change Heaprin to SC ECHO: EF 50% Eventhough Mildly elevated Trop could be secondary to CKD and CHF. 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 Will change the consult to Dr. Cristina for further management Objective - Vital Signs/Intake and Output Vital Signs (last 24 hours): Temp Pulse Resp BP Pulse Ox 98.3 F 82 10 L 157/67 H 100 06/13/18 12:00 06/13/18 12:00 06/13/18 12:00 06/13/18 10:40 06/13/18 12:00 Intake and Output: 06/13/18 06/13/18 06:59 18:59 Intake Total 434.4 231.6 Output Total 3000 500 Balance -2565.6 -268.4 - Medications Medications: Current Medications Aspirin (Aspirin Chewable) 81 mg PO DAILY [facility] Last Admin: 06/13/18 09:42 Dose: 81 mg Calcitriol (Rocaltrol) 0.5 mcg PO DAILY [facility] Last Admin: 06/13/18 09:42 Dose: 0.5 mcg Calcium [facility] ([facility]lo) [facility] Last Admin: 06/13/18 08:04 Dose: 667 mg Clopidogrel Bisulfate (Plavix) 75 mg PO DAILY [facility] Last Admin: 06/13/18 09:42 Dose: 75 mg Doxycycline Hyclate (Doryx) 100 mg PO Q12H [facility]; Protocol Stop: 06/14/18 09:31 Last Admin: 06/13/18 09:42 Dose: 100 mg Furosemide (Lasix) 20 mg IVP Q12 [facility] Heparin Sodium (Porcine) (Heparin) 5,000 units SC Q12 [facility] Ceftriaxone Sodium 1 gm/ (Sodium Chloride) 100 mls @ 100 mls/hr IVPB DAILY [facility]; Protocol Last Admin: 06/13/18 09:46 Dose: 100 mls/hr Insulin Human Regular (Novolin R) 0 unit SC ACHS [facility]; Protocol Last Admin: 06/13/18 11:42 Dose: 2 u Metoprolol Tartrate (Lopressor) 12.5 mg PO BID [facility] Last Admin: 06/13/18 09:42 Dose: 12.5 mg Pantoprazole Sodium (Protonix Ec Tab) 40 mg PO DAILY [facility] Last Admin: 06/13/18 09:43 Dose: 40 mg Rosuvastatin Calcium (Crestor) 10 mg PO HS [facility] Last Admin: 06/12/18 21:36 Dose: 10 mg - Labs Labs: 06/13/18 05:40 06/13/18 05:40 PT 13.3 SECONDS (9.7-12.2) H 06/12/18 05:34 INR 1.2 06/12/18 05:34 APTT 140 SECONDS (21-34) H* D 06/13/18 12:03
[2018-06-13] MEDS ORDERED: Potassium Chloride 20 mEq ER Tab PO SCH (14:45)
[2018-06-13] MEDS ORDERED: Potassium Chloride 20 mEq ER Tab PO ONE (14:45)
[2018-06-14 06:30] LABS: BASO # 0.1 K/uL (0.0-0.2); EOS # 0.3 K/uL (0.0-0.7); EOS % 3.1 % (0.0-4.0); HEMOGLOBIN 10.5 g/dL (12.0-18.0); LYMPH # 2.9 K/uL (1.0-4.3); LYMPH % 27.7 % (20.0-40.0); MEAN CELL VOLUME 82.5 fL (80.0-94.0); MEAN CORPUSCULAR HEMOGLOBIN 27.6 pg (27.0-31.0); MEAN CORPUSCULAR HGB CONC 33.4 g/dL (33.0-37.0); MEAN PLATELET VOLUME 7.9 fL (7.2-11.7); MONO # 1.6 K/uL (0.0-0.8); MONO % 15.5 % (0.0-10.0); NEUT # 5.6 K/uL (1.8-7.0); NEUT % 52.7 % (50.0-75.0); NRBC % 0.1 % (0.0-2.0); RBC 3.8 Mil/uL (4.40-5.90); WHITE BLOOD COUNT 10.6 K/uL (4.8-10.8)
[2018-06-14 06:51] LABS: ALB/GLOB RATIO 1.1 (1.0-2.1); ALBUMIN 4.2 g/dL (3.5-5.0); CALCIUM 9.3 mg/dl (8.6-10.4)
[2018-06-14] MEDS: (Novolin R) Insulin Human Regular 100 units/ml vial SC SCH ×4 (07:58→21:23)
--- NOTE | 2018-06-14 08:39 | CP.PCM.PN ---
Subjective - Date & Time of Evaluation Date of Evaluation: 06/14/18 Time of Evaluation: 08:36 - Subjective Subjective: See and examined Cardiology follow up taken over from Dr. Tomas, as the patient is a [facility] patient of Dr. Cristina Objective - Vital Signs/Intake and Output Vital Signs (last 24 hours): Temp Pulse Resp BP Pulse Ox 98.3 F 84 17 130/57 L 95 06/14/18 08:00 06/14/18 08:00 06/14/18 08:00 06/14/18 08:00 06/14/18 08:00 Intake and Output: 06/14/18 06/14/18 06:59 18:59 Intake Total 100 Output Total 200 Balance -100 - Medications Medications: Current Medications Aspirin (Aspirin Chewable) 81 mg PO DAILY [facility] Last Admin: 06/13/18 09:42 Dose: 81 mg Calcitriol (Rocaltrol) 0.5 mcg PO DAILY [facility] Last Admin: 06/13/18 09:42 Dose: 0.5 mcg [facility] Last Admin: 06/14/18 08:16 Dose: 667 mg Clopidogrel Bisulfate (Plavix) 75 mg PO DAILY [facility] Last Admin: 06/13/18 09:42 Dose: 75 mg Doxycycline Hyclate (Doryx) 100 mg PO Q12H [facility]; Protocol Stop: 06/14/18 09:31 Last Admin: 06/13/18 21:47 Dose: 100 mg Furosemide (Lasix) 20 mg IVP Q12 [facility] Last Admin: 06/13/18 21:48 Dose: 20 mg Heparin Sodium (Porcine) (Heparin) 5,000 units SC Q12 [facility] Last Admin: 06/13/18 21:47 Dose: 5,000 units Ceftriaxone Sodium 1 gm/ (Sodium Chloride) 100 mls @ 100 mls/hr IVPB DAILY [facility]; Protocol Last Admin: 06/13/18 09:46 Dose: 100 mls/hr Insulin Human Regular (Novolin R) 0 unit SC ACHS [facility]; Protocol Last Admin: 06/14/18 07:58 Dose: Not Given Lisinopril (Zestril) 10 mg PO DAILY [facility] Last Admin: 06/13/18 15:25 Dose: 10 mg Metoprolol Tartrate (Lopressor) 12.5 mg PO BID [facility] Last Admin: 06/13/18 17:20 Dose: 12.5 mg Pantoprazole Sodium (Protonix Ec Tab) 40 mg PO DAILY [facility] Last Admin: 06/13/18 09:43 Dose: 40 mg Rosuvastatin Calcium (Crestor) 10 mg PO HS [facility] Last Admin: 06/13/18 21:47 Dose: 10 mg - Labs Labs: 06/14/18 06:24 06/14/18 06:24 PT 13.3 SECONDS (9.7-12.2) H 06/12/18 05:34 INR 1.2 06/12/18 05:34 APTT 140 SECONDS (21-34) H* D 06/13/18 12:03 - Constitutional Appears: Well, Non-toxic - Head Exam Head Exam: ATRAUMATIC - Eye Exam Pupil Exam: PERRL - Neck Exam Neck Exam: absent: Thyromegaly - Respiratory Exam Respiratory Exam: Clear to Ausculation Bilateral - Cardiovascular Exam Cardiovascular Exam: REGULAR RHYTHM, +S1, +S2. absent: JVD - Neurological Exam Neurological Exam: CN II-XII Intact, Oriented x3 Assessment and Plan (1) CHF (congestive heart failure) Assessment & Plan: Admitted with fluid overload due to acute on chronic diastolic CHF Markedly imprved with diuresis Know history of HFpEF Acute on chronic renal failure due to underlying disease and overdiuresis Hold diuretics ACS/ischemia less likely Status: Acute (2) Elevated troponin Assessment & Plan: Likely in setting of acute on chronic diastolic CHF and renal failure Cont with current meds Status: Acute
[2018-06-14] MEDS: Pantoprazole 40 mg EC Tab PO SCH (09:46)
--- NOTE | 2018-06-14 09:59 | CP.PCM.PN ---
Subjective - Date & Time of Evaluation Date of Evaluation: 06/14/18 Time of Evaluation: 09:53 - Subjective Subjective: PGY-1 Medicine Progress Note for Dr. Cuba's service Patient seen and examined at bedside. Patient reports improved breathing, no leg swelling, no orthopnea, and no LEES. Patient denies fevers, chills, chest pain, sob, n/v, constipation or diarrhea, and dysuria. Objective - Vital Signs/Intake and Output Vital Signs (last 24 hours): Temp Pulse Resp BP Pulse Ox 98.3 F 84 17 130/57 L 95 06/14/18 08:00 06/14/18 08:00 06/14/18 08:00 06/14/18 08:00 06/14/18 08:00 Intake and Output: 06/14/18 06/14/18 06:59 18:59 Intake Total 100 Output Total 200 Balance -100 - Medications Medications: Current Medications Aspirin (Aspirin Chewable) 81 mg PO DAILY [facility] Last Admin: 06/14/18 09:45 Dose: 81 mg Calcitriol (Rocaltrol) 0.5 mcg PO DAILY [facility] Last Admin: 06/14/18 09:46 Dose: 0.5 mcg Calcium Acetate (Phoslo) 667 mg PO BIDCC [facility] Last Admin: 06/14/18 08:16 Dose: 667 mg Clopidogrel Bisulfate (Plavix) 75 mg PO DAILY [facility] Last Admin: 06/14/18 09:45 Dose: 75 mg Heparin Sodium (Porcine) (Heparin) 5,000 units SC Q12 [facility] Last Admin: 06/14/18 09:47 Dose: 5,000 units Ceftriaxone Sodium 1 gm/ (Sodium Chloride) 100 mls @ 100 mls/hr IVPB DAILY [facility]; Protocol Last Admin: 06/14/18 09:48 Dose: 100 mls/hr Insulin Human Regular (Novolin R) 0 unit SC ACHS [facility]; Protocol Last Admin: 06/14/18 07:58 Dose: Not Given Lisinopril (Zestril) 10 mg PO DAILY [facility] Last Admin: 06/14/18 09:46 Dose: 10 mg Metoprolol Tartrate (Lopressor) 12.5 mg PO BID [facility] Last Admin: 06/14/18 09:45 Dose: 12.5 mg Pantoprazole Sodium (Protonix Ec Tab) 40 mg PO DAILY [facility] Last Admin: 06/14/18 09:46 Dose: 40 mg Rosuvastatin Calcium (Crestor) 10 mg PO HS [facility] Last Admin: 06/13/18 21:47 Dose: 10 mg - Labs Labs: 06/14/18 06:24 06/14/18 06:24 PT 13.3 SECONDS (9.7-12.2) H 06/12/18 05:34 INR 1.2 06/12/18 05:34 APTT 140 SECONDS (21-34) H* D 06/13/18 12:03 - Constitutional Appears: Non-toxic, No Acute Distress - Head Exam Head Exam: NORMAL INSPECTION, NORMOCEPHALIC - Eye Exam Eye Exam: EOMI, Normal appearance. absent: Nystagmus, Scleral icterus - ENT Exam ENT Exam: Mucous Membranes Moist - Respiratory Exam Respiratory Exam: Clear to Ausculation Bilateral, NORMAL BREATHING PATTERN. absent: Rales, Rhonchi, Wheezes - Cardiovascular Exam Cardiovascular Exam: REGULAR RHYTHM, +S1, +S2 - GI/Abdominal Exam GI & Abdominal Exam: Soft, Normal Bowel Sounds. absent: Distended, Firm, Guarding, Rigid, Tenderness - Extremities Exam Extremities Exam: Normal Inspection. absent: Calf Tenderness, Pedal Edema - Back Exam Back Exam: NORMAL INSPECTION. absent: CVA tenderness (L), CVA tenderness (R) - Neurological Exam Neurological Exam: Alert, Awake, Oriented x3 - Skin Skin Exam: Intact, Normal Color Assessment and Plan - Assessment and Plan (Free Text) Assessment: This is a 57 year old male with PMH HTN, DM, CKD, BPH presents to ED for shortness of breath, admitted to ICU for acute CHF exacerbation. CXR showed v enous congestion and interstitial edema. Echo showed EF of 50%; diastolic filling pressures elevated; mild concentric pericardial effusion (no tamponade). Vascular surgery was consulted for CKD and increasing Cr; recommended AVF when patient more stable. Nephro consulted for elevated phosphorus, DAVID. Hyponatremia on labs 2/2 CHF and increasing Cr likely due to cardiorenal syndrome. Dr. Tomas transferred care to Dr. Cristina as he is patient supervisor unloading and was further transferred to Dr. Greenfield. Plan: CHF exacerbation Cardiology Consulted: Dr. Tomas- Dr. Cristina- Dr. Greenfield- continue currents meds; no stated cardiac cath procedure ICU Consulted: Patient downgraded from ICU CXR 06/11: RLL atelectasis, venous congestion, interstitial edema Repeat CXR - pleural effusion ECHO: EF 50%, diastolic filling pressures elevated, pulmonary valve, mild incompetence, mild concentric pericardial effison, mitral mild to moderate incompentence, see full ech report EKG: NSR, LBBB Troponin elevated 0.123 likely 2/2 to CKD and CHF BNP elevated, 4160 D-dimer elevated, 473 likely secondary to renal failure lipid panel normal DAPT with ASA and plavix daily Crestor 10mg PO HS Lisinopril held in setting of DAVID metoprolol 12.5 mg PO BID; Holding diuretics as per cardio Daily weights; Strict Is/Os no leg swelling, orthopnea, or JVD noted DAVID on CKD stage 4 Vascular Surgery consulted: Dr. Casiano- [facility] when patient is more stable Nephrology Consulted: Dr. Hidalgo- recommendations as below monitor I/Os Lisinopril- held in setting of DAVID (per nephro) Hyponatremia likely 2/2 to CHF Repeat CMP in AM Fluid restriction Hypokalemia KCl 40meq x1 Repeat CMP in AM Hyperphosphatemia Phoslo Repeat Phos levels in AM DM 2 HbA1c 6.7 low dose sliding scale ACHS PPX: GI: protonix 40 PO DVT: SCDs, heparin 5000 units sc q12 [facility] Wilberto Guzman PGY-1 Medical Management d/w Dr. Cuba
[2018-06-14] MEDS ORDERED: Potassium Chloride 20 mEq ER Tab PO ONE (10:27)
--- NOTE | 2018-06-14 10:58 | CP.PCM.PN ---
Subjective - Date & Time of Evaluation Date of Evaluation: 06/14/18 Time of Evaluation: 10:55 - Subjective Subjective: awake and alert denies any sob cp dizziness palpitations leg swelling n/v/d good uop Objective - Vital Signs/Intake and Output Vital Signs (last 24 hours): Temp Pulse Resp BP Pulse Ox 98.3 F 68 17 130/57 L 95 06/14/18 08:00 06/14/18 10:53 06/14/18 08:00 06/14/18 08:00 06/14/18 08:00 Intake and Output: 06/14/18 06/14/18 06:59 18:59 Intake Total 100 300 Output Total 200 650 Balance -100 -350 - Medications Medications: Current Medications Aspirin (Aspirin Chewable) 81 mg PO DAILY [facility] Last Admin: 06/14/18 09:45 Dose: 81 mg Calcitriol (Rocaltrol) 0.5 mcg PO DAILY [facility] Last Admin: 06/14/18 09:46 Dose: 0.5 mcg [facility] ([facility]lo) [facility] Last Admin: 06/14/18 08:16 Dose: 667 mg Clopidogrel Bisulfate (Plavix) 75 mg PO DAILY [facility] Last Admin: 06/14/18 09:45 Dose: 75 mg Heparin Sodium (Porcine) (Heparin) 5,000 units SC Q12 [facility] Last Admin: 06/14/18 09:47 Dose: 5,000 units Ceftriaxone Sodium 1 gm/ (Sodium Chloride) 100 mls @ 100 mls/hr IVPB DAILY [facility]; Protocol Last Admin: 06/14/18 09:48 Dose: 100 mls/hr Insulin Human Regular (Novolin R) 0 unit SC ACHS [facility]; Protocol Last Admin: 06/14/18 07:58 Dose: Not Given Metoprolol Tartrate (Lopressor) 12.5 mg PO BID [facility] Last Admin: 06/14/18 09:45 Dose: 12.5 mg Pantoprazole Sodium (Protonix Ec Tab) 40 mg PO DAILY [facility] Last Admin: 06/14/18 09:46 Dose: 40 mg Rosuvastatin Calcium (Crestor) 10 mg PO HS [facility] Last Admin: 06/13/18 21:47 Dose: 10 mg - Labs Labs: 06/14/18 06:24 06/14/18 06:24 PT 13.3 SECONDS (9.7-12.2) H 06/12/18 05:34 INR 1.2 06/12/18 05:34 APTT 140 SECONDS (21-34) H* D 06/13/18 12:03 - Constitutional Appears: Non-toxic, No Acute Distress - Head Exam Head Exam: NORMAL INSPECTION, NORMOCEPHALIC - Eye Exam Eye Exam: Normal appearance, PERRL - ENT Exam ENT Exam: Mucous Membranes Moist, Normal Exam - Neck Exam Neck Exam: Full ROM, Normal Inspection - Respiratory Exam Respiratory Exam: Decreased Breath Sounds, Clear to Ausculation Bilateral, NORMAL BREATHING PATTERN - Cardiovascular Exam Cardiovascular Exam: REGULAR RHYTHM, RRR - GI/Abdominal Exam GI & Abdominal Exam: Distended, Soft, Normal Bowel Sounds - Extremities Exam Extremities Exam: Full ROM, Normal Inspection - Neurological Exam Neurological Exam: Alert, Awake, Oriented x3 - Psychiatric Exam Psychiatric exam: Normal Affect, Normal Mood - Skin Skin Exam: Dry, Intact Assessment and Plan (1) CHF (congestive heart failure) Status: Acute (2) Elevated troponin Status: Acute (3) Acute renal failure Status: Acute (4) Diabetes mellitus Status: Acute (5) HTN (hypertension) Status: Acute (6) Hyponatremia Status: Acute - Assessment and Plan (Free Text) Assessment: # acute renal failure # ckd 4 / dm nephropathy # hyponatremia #chf # troponin leak # htn plan: hold off lisinopril due to worsening renal function check renal US check ua and urine protein off lasix per cardiology, no plan for cardiac cath na improving, maintain fluid restriction. off thiazide
[2018-06-14 12:07] LABS: URINE BILIRUBIN NEGATIVE (NEGATIVE); URINE BLOOD NEGATIVE (NEGATIVE); URINE CLARITY Clear (Clear); URINE COLOR Straw (YELLOW); URINE GLUCOSE (UA) NORMAL (Normal); URINE LEUKOCYTE ESTERASE NEG Leu/uL (Negative); URINE PROTEIN 1+ mg/dL (NEGATIVE); URINE UROBILINOGEN NORMAL mg/dL (0.2-1.0)
--- NOTE | 2018-06-14 12:13 | VASCLAB ---
Date of service: 06/12/2018 PROCEDURE: Right Upper Extremity Venous Duplex Exam HISTORY: dialysis access planning dialysis access planning ESRD, Right hand dominant PRIORS: None. TECHNIQUE: Right upper extremity, internal jugular, subclavian, axillary, brachial, ulnar, radial, basilic and upper cephalic veins were evaluated. Flow was assessed with color Doppler, compressibility, assessment of phasic flow and augmentation response. Report prepared by Jorge Kaplan, RVT FINDINGS: FINDINGS: RIGHT: 1. Internal Jugular Vein: Compressibility - Fully compressible: Thrombus - None : Flow - Phasic 2. Subclavian Vein:Compressibility - Fully compressible: Thrombus - None : Flow - Phasic 3. Axillary Vein: Compressibility - Fully compressible: Thrombus - None 4. Brachial Vein: Compressibility - Fully compressible: Thrombus - None 5. Ulnar Vein:Compressibility - Fully compressible: Thrombus - None 6. Radial Vein:Compressibility - Fully compressible: Thrombus - None 7. Cephalic Vein: Compressibility - Fully compressible: thrombus - None 7.1. Upper Arm: Proximal Diameter: 0.38cm. Mid Diameter: 0.42cm. Distal Diameter: 0.32cm. 7.2. Forearm: Proximal Diameter: 0.20cm. Mid Diameter:0.22cm. Distal Diameter: 0.21cm 8. Basilic Vein:Compressibility - Fully compressible: thrombus - None 8.1. Upper Arm:Proximal Diameter: 0.38cm. Mid Diameter: 0.29cm. Distal Diameter: 0.26cm. 8.2. Forearm: Proximal Diameter: 0.22cm. Mid Diameter:0.20cm. Distal Diameter: 0.14cm. LEFT: 1. Internal Jugular Vein: Compressibility - Fully compressible: Thrombus - None : Flow - Phasic 2. Subclavian Vein:Compressibility - Fully compressible: Thrombus - None : Flow - Phasic 3. Axillary Vein: Compressibility - Fully compressible: Thrombus - None 4. Brachial Vein: Compressibility - Fully compressible: Thrombus - None 5. Ulnar Vein:Compressibility - Fully compressible: Thrombus - None 6. Radial Vein:Compressibility - Fully compressible: Thrombus - None 7. Cephalic Vein: Compressibility - Fully compressible: thrombus - None 7.1. Upper Arm: Proximal Diameter: 0.33cm. Mid Diameter: 0.32cm. Distal Diameter: 0.43cm. 7.2. Forearm: Proximal Diameter: 0.23cm. Mid Diameter:0.22cm. Distal Diameter: 0.29cm 8. Basilic Vein:Compressibility - Fully compressible: thrombus - None 8.1. Upper Arm:Proximal Diameter: 0.36cm. Mid Diameter: 0.38cm. Distal Diameter: 0.34cm. 8.2. Forearm: Proximal Diameter: 0.24cm. Mid Diameter:0.17cm. Distal Diameter: 0.14cm. OTHER FINDINGS: None. The right brachial artery measured approximately 0.48 cm around the distal upper arm and demonstrated triphasic arterial flow with velocity of 108.4cm/s. The right radial artery measured approximately 0.20 cm around the distal forearm and demonstrated triphasic arterial flow with velocity of 93.9cm/s The left brachia artery measured approximately 0.43 cm around the distal upper arm and demonstrated triphasic arterial flow with velocity of 82.2cm/s. The right radial artery measured approximately 0.20 cm around the distal forearm and demonstrated triphasic arterial flow with velocity of 82.2cm/s. IMPRESSION: Right Upper extremity: The diameter measurements of the right cephalic vein is measured between 0.42 cm and 0.20 cm and basilic vein is measured between 0.38 cm and 0.14 cm Left Upper extremity: The diameter measurements of the left cephalic vein is measured between 0.43 cm and 0.22 cm and basilic vein is measured between 0.38 cm and 0.14 cm.
--- NOTE | 2018-06-14 14:37 | US ---
Date of service: 06/14/2018 PROCEDURE: Ultrasound of the Kidneys HISTORY: yolis COMPARISON: Renal ultrasound 04/22/2015. TECHNIQUE: Sonogram of the kidneys. FINDINGS: RIGHT KIDNEY: Measures: 8.7 x 4.9 x 5.5 cm. Normal in size, contour and echogenicity. No stone, solid mass lesion or hydronephrosis visualized. LEFT KIDNEY: Measures: 9.4 x 5 1 x 4.9 cm. Normal in size, contour and echogenicity. No stone, solid mass lesion or hydronephrosis visualized. OTHER FINDINGS: Urine bladder is distended to the 135.4 cc with a postvoid residual 9.6 cm no cyst or solid mass is seen or urolithiasis within the lumen of the bladder. IMPRESSION: Unremarkable renal ultrasound examination with urinary bladder unremarkable as discussed above. Postvoid residual 10 cc from prevoid volume of 135 cc. No definite interval change compared prior renal ultrasound exam 04/22/2015.
[2018-06-15 07:02] LABS: BASO # 0.2 K/uL (0.0-0.2); BASO % 1.3 % (0.0-2.0); EOS # 1.6 K/uL (0.0-0.7); EOS % 13.6 % (0.0-4.0); HEMOGLOBIN 10.6 g/dL (12.0-18.0); LYMPH # 3.4 K/uL (1.0-4.3); LYMPH % 28.9 % (20.0-40.0); MEAN CELL VOLUME 83.6 fL (80.0-94.0); MEAN CORPUSCULAR HEMOGLOBIN 27.2 pg (27.0-31.0); MEAN CORPUSCULAR HGB CONC 32.6 g/dL (33.0-37.0); MEAN PLATELET VOLUME 8.1 fL (7.2-11.7); MONO # 1.3 K/uL (0.0-0.8); NEUT # 5.3 K/uL (1.8-7.0); NEUT % 45.2 % (50.0-75.0); RBC 3.9 Mil/uL (4.40-5.90); RED CELL DISTRIBUTION WIDTH 16.7 % (11.5-14.5); WHITE BLOOD COUNT 11.7 K/uL (4.8-10.8)
[2018-06-15] MEDS: (Novolin R) Insulin Human Regular 100 units/ml vial SC SCH ×2 (07:41→11:38)
[2018-06-15 07:46] LABS: ALBUMIN 3.9 g/dL (3.5-5.0); CALCIUM 9.1 mg/dl (8.6-10.4)
[2018-06-15] MEDS: Pantoprazole 40 mg EC Tab PO SCH (09:20)
--- NOTE | 2018-06-15 12:17 | CP.PCM.PN ---
Subjective - Date & Time of Evaluation Date of Evaluation: 06/15/18 Time of Evaluation: 12:15 - Subjective Subjective: seen and examined no events no complaints 10 point ros neg . tolerating diet wants to go home Objective - Vital Signs/Intake and Output Vital Signs (last 24 hours): Temp Pulse Resp BP Pulse Ox 98.4 F 74 14 138/45 L 97 06/15/18 08:00 06/15/18 11:31 06/15/18 08:00 06/15/18 08:00 06/15/18 08:00 Intake and Output: 06/15/18 06/15/18 06:59 18:59 Intake Total 100 240 Output Total 400 Balance -300 240 - Medications Medications: Current Medications Aspirin (Aspirin Chewable) 81 mg PO DAILY [facility] Last Admin: 06/15/18 09:20 Dose: 81 mg Calcitriol (Rocaltrol) 0.5 mcg PO DAILY [facility] Last Admin: 06/15/18 09:20 Dose: 0.5 mcg Calcium Acetate (Phoslo) 667 mg PO BIDCC [facility] Last Admin: 06/15/18 07:42 Dose: 667 mg Clopidogrel Bisulfate (Plavix) 75 mg PO DAILY [facility] Last Admin: 06/15/18 09:20 Dose: 75 mg Heparin Sodium (Porcine) (Heparin) 5,000 units SC Q12 [facility] Last Admin: 06/15/18 09:19 Dose: 5,000 units Insulin Human Regular (Novolin R) 0 unit SC ACHS [facility]; Protocol Last Admin: 06/15/18 11:38 Dose: 1 u Metoprolol Tartrate (Lopressor) 12.5 mg PO BID [facility] Last Admin: 06/15/18 09:21 Dose: 12.5 mg Pantoprazole Sodium (Protonix Ec Tab) 40 mg PO DAILY [facility] Last Admin: 06/15/18 09:20 Dose: 40 mg Rosuvastatin Calcium (Crestor) 10 mg PO HS [facility] Last Admin: 06/14/18 21:30 Dose: 10 mg - Labs Labs: 06/15/18 06:56 06/15/18 06:56 PT 13.3 SECONDS (9.7-12.2) H 06/12/18 05:34 INR 1.2 06/12/18 05:34 APTT 140 SECONDS (21-34) H* D 06/13/18 12:03 - Constitutional Appears: Non-toxic, No Acute Distress - Head Exam Head Exam: NORMAL INSPECTION, NORMOCEPHALIC - Eye Exam Eye Exam: Normal appearance, PERRL - ENT Exam ENT Exam: Mucous Membranes Moist, Normal Exam - Neck Exam Neck Exam: Full ROM, Normal Inspection - Respiratory Exam Respiratory Exam: Clear to Ausculation Bilateral, NORMAL BREATHING PATTERN - Cardiovascular Exam Cardiovascular Exam: REGULAR RHYTHM, RRR - GI/Abdominal Exam GI & Abdominal Exam: Distended, Soft, Normal Bowel Sounds - Extremities Exam Extremities Exam: Full ROM, Normal Inspection - Neurological Exam Neurological Exam: Alert, Awake, Oriented x3 - Psychiatric Exam Psychiatric exam: Normal Affect, Normal Mood - Skin Skin Exam: Dry, Intact Assessment and Plan (1) CHF (congestive heart failure) Status: Acute (2) Elevated troponin Status: Acute (3) Acute renal failure Status: Acute (4) Diabetes mellitus Status: Acute (5) HTN (hypertension) Status: Acute (6) Hyponatremia Status: Acute - Assessment and Plan (Free Text) Assessment: # acute renal failure - resolving # ckd 4 / dm nephropathy, 0.5g proteinuria # hyponatremia #chf # troponin leak # htn plan: hold off lisinopril off lasix per cardiology na improving, maintain fluid restriction. off thiazide stable from renal standpoint
[2018-06-15 12:59] VITALS: BP 162/60; PULSE 78; RESP 17; TEMP 98.3
--- NOTE | 2018-06-15 14:48 | CP.PCM.DIS ---
Provider - Provider Date of Admission: 06/11/18 13:34 Attending physician: Fritz Cuba Jr, MD Consults: 06/11/18 15:21 Physician Consult Routine Comment: Consulting Provider: Trino Casiano Jr. Consulting Physician: Trino Casiano Jr. Reason for Consult: pt w/ stage III CKD, consult for AVF placement. thank you. 06/11/18 16:01 Nephrology Consult Routine Comment: Consulting Provider: Nino Sanchez Consulting Physician: Nino Sanchez Reason for Consult: CKD stage III 06/12/18 09:24 Cardiology Consult Routine Comment: Consulting Provider: Angelito Tomas Consulting Physician: Angelito Tomas Reason for Consult: NSTMEI?CAD/CKD 06/12/18 10:24 Nephrology Consult Routine Comment: Consulting Provider: Stan Hidalgo Consulting Physician: Stan Hidalgo Reason for Consult: known to pt 06/13/18 14:07 Cardiology Consult Routine Comment: Please notify. He is the primary Newborn Hearing Screener Consulting Provider: Simeon Cristina Consulting Physician: Simeon Cristina Reason for Consult: Non STEMI, CAD Time Spent in preparation of Discharge (in minutes): 45 Hospital Course - Lab Results Lab Results: Micro Results 06/11/18 10:56 Blood Blood Culture - Preliminary NO GROWTH AFTER 4 DAYS 06/11/18 10:45 Blood Blood Culture - Preliminary NO GROWTH AFTER 4 DAYS 06/11/18 00:37 Naris MRSA Culture (Admit) - Final MRSA NOT DETECTED Most Recent Lab Values WBC 11.7 K/uL (4.8-10.8) H 06/15/18 06:56 RBC 3.90 Mil/uL (4.40-5.90) L 06/15/18 06:56 Hgb 10.6 g/dL (12.0-18.0) L 06/15/18 06:56 Hct 32.6 % (35.0-51.0) L 06/15/18 06:56 MCV 83.6 fL (80.0-94.0) 06/15/18 06:56 MCH 27.2 pg (27.0-31.0) 06/15/18 06:56 MCHC 32.6 g/dL (33.0-37.0) L 06/15/18 06:56 RDW 16.7 % (11.5-14.5) H 06/15/18 06:56 Plt Count 455 K/uL (130-400) H 06/15/18 06:56 MPV 8.1 fL (7.2-11.7) 06/15/18 06:56 Neut % (Auto) 45.2 % (50.0-75.0) L 06/15/18 06:56 Lymph % (Auto) 28.9 % (20.0-40.0) 06/15/18 06:56 Cooke % (Auto) 11.0 % (0.0-10.0) H 06/15/18 06:56 Eos % (Auto) 13.6 % (0.0-4.0) H 06/15/18 06:56 Baso % (Auto) 1.3 % (0.0-2.0) 06/15/18 06:56 Neut # (Auto) 5.3 K/uL (1.8-7.0) 06/15/18 06:56 Lymph # (Auto) 3.4 K/uL (1.0-4.3) 06/15/18 06:56 Cooke # (Auto) 1.3 K/uL (0.0-0.8) H 06/15/18 06:56 Eos # (Auto) 1.6 K/uL (0.0-0.7) H 06/15/18 06:56 Baso # (Auto) 0.2 K/uL (0.0-0.2) 06/15/18 06:56 Neutrophils % (Manual) 87 % (50-75) H 06/11/18 10:33 Band Neutrophils % 1 % (0-2) 06/11/18 10:33 Lymphocytes % (Manual) 4 % (20-40) L 06/11/18 10:33 Monocytes % (Manual) 8 % (0-10) 06/11/18 10:33 Platelet Estimate Normal (NORMAL) 06/11/18 10:33 Polychromasia Slight 06/11/18 10:33 Hypochromasia (manual) Slight 06/11/18 10:33 Anisocytosis (manual) Slight 06/11/18 10:33 PT 13.3 SECONDS (9.7-12.2) H 06/12/18 05:34 INR 1.2 06/12/18 05:34 APTT 140 SECONDS (21-34) H* D 06/13/18 12:03 D-Dimer, Quantitative 473 ng/mlDDU (0-243) H 06/11/18 10:33 Puncture Site Rra 06/11/18 11:25 pCO2 35 mm/Hg (35-45) 06/11/18 11:25 pO2 86 mm/Hg (80-100) 06/11/18 11:25 HCO3 18.4 mmol/L (21-28) L 06/11/18 11:25 ABG pH 7.30 (7.35-7.45) L 06/11/18 11:25 ABG Total CO2 18.3 mmol/L (22-28) L 06/11/18 11:25 ABG O2 Saturation 96.7 % (95-98) 06/11/18 11:25 ABG Base Excess -8.4 mmol/L (-2.0-3.0) L 06/11/18 11:25 ABG Hemoglobin 10.0 g/dL (11.7-17.4) L 06/11/18 11:25 ABG Carboxyhemoglobin 1.1 % (0.5-1.5) 06/11/18 11:25 POC ABG HHb (Measured) 3.3 % (0.0-5.0) 06/11/18 11:25 ABG Methemoglobin 0.3 % (0.0-3.0) 06/11/18 11:25 Corby Test Pos 06/11/18 11:25 VBG pH 7.32 (7.32-7.43) 06/11/18 10:32 VBG pCO2 38 mmHg (40-60) L 06/11/18 10:32 VBG HCO3 18.5 mmol/L 06/11/18 10:32 VBG Total CO2 20.8 mmol/L (22-28) L 06/11/18 10:32 VBG O2 Sat (Calc) 44.2 % (40-65) 06/11/18 10:32 VBG Base Excess -6.0 mmol/L (0.0-2.0) L 06/11/18 10:32 VBG Potassium 3.9 mmol/L (3.6-5.2) 06/11/18 10:32 Hgb O2 Saturation 95.3 % (95.0-98.0) 06/11/18 11:25 Sodium 122.0 mmol/l (132-148) L 06/11/18 10:32 Chloride 90.0 mmol/L (98-107) L 06/11/18 10:32 Glucose 206 mg/dl (75-110) H 06/11/18 10:32 Lactate 1.7 mmol/L (0.7-2.1) 06/11/18 10:32 FiO2 60.0 % 06/11/18 11:25 Inspiratory BiPAP 12 06/11/18 11:25 Expiratory BiPAP 6 06/11/18 11:25 Sodium 131 mmol/L (132-148) L 06/15/18 06:56 Potassium 3.6 mmol/L (3.6-5.2) 06/15/18 06:56 Chloride 88 mmol/L (98-107) L 06/15/18 06:56 Carbon Dioxide 29 mmol/L (22-30) 06/15/18 06:56 Anion Gap 17 (10-20) 06/15/18 06:56 BUN 70 mg/dL (9-20) H 06/15/18 06:56 Creatinine 2.9 mg/dL (0.8-1.5) H 06/15/18 06:56 Est GFR ( Amer) 27 06/15/18 06:56 Est GFR (Non-Af Amer) 23 06/15/18 06:56 POC Glucose (mg/dL) 151 mg/dL (65-110) H 06/15/18 07:23 Random Glucose 147 mg/dL (75-110) H 06/15/18 06:56 Hemoglobin A1c 6.7 % (4.2-6.5) H 06/11/18 10:33 Serum Osmolality 302 mosm/kg (272-300) H 06/13/18 12:03 Uric Acid 8.1 mg/dL (3.5-8.5) 06/12/18 05:34 Calcium 9.1 mg/dl (8.6-10.4) 06/15/18 06:56 Phosphorus 4.3 mg/dL (2.5-4.5) 06/15/18 06:56 Magnesium 2.5 mg/dL (1.6-2.3) H 06/15/18 06:56 Total Bilirubin 0.5 mg/dL (0.2-1.3) 06/15/18 06:56 AST 53 U/L (17-59) 06/15/18 06:56 ALT 33 U/L (21-72) 06/15/18 06:56 Alkaline Phosphatase 90 U/L (38-126) 06/15/18 06:56 CK-MB (Mass) 4.77 ng/mL (0.0-3.38) H 06/11/18 10:33 Troponin I 0.1230 ng/mL (0.00-0.120) H* 06/11/18 10:33 NT-Pro-B Natriuret Pep 4160 pg/mL (0-900) H 06/11/18 10:33 Total Protein 7.7 g/dL (6.3-8.3) 06/15/18 06:56 Albumin 3.9 g/dL (3.5-5.0) 06/15/18 06:56 Globulin 3.8 gm/dL (2.2-3.9) 06/15/18 06:56 Albumin/Globulin Ratio 1.0 (1.0-2.1) 06/15/18 06:56 Triglycerides 67 mg/dL (0-149) 06/11/18 10:33 Cholesterol 143 mg/dL (0-199) 06/11/18 10:33 LDL Cholesterol Direct 64 mg/dL (0-129) 06/11/18 10:33 HDL Cholesterol 52 mg/dL (30-70) 06/11/18 10:33 Venous Blood Potassium 3.9 mmol/L (3.6-5.2) 06/11/18 10:32 Urine Color Straw (YELLOW) 06/14/18 12:00 Urine Clarity Clear (Clear) 06/14/18 12:00 Urine pH 6.0 (5.0-8.0) 06/14/18 12:00 Ur Specific [place] 1.009 (1.003-1.030) 06/14/18 12:00 Urine Protein 1+ mg/dL (NEGATIVE) H 06/14/18 12:00 Urine Glucose (UA) Normal mg/dL (Normal) 06/14/18 12:00 Urine Ketones Negative mg/dL (NEGATIVE) 06/14/18 12:00 Urine Blood Negative (NEGATIVE) 06/14/18 12:00 Urine Nitrate Negative (NEGATIVE) 06/14/18 12:00 Urine Bilirubin Negative (NEGATIVE) 06/14/18 12:00 Urine Urobilinogen Normal mg/dL (0.2-1.0) 06/14/18 12:00 Ur Leukocyte Esterase Neg Riccardo/uL (Negative) 06/14/18 12:00 Urine WBC (Auto) < 1 /hpf (0-5) 06/14/18 12:00 Urine RBC (Auto) 1 /hpf (0-3) 06/14/18 12:00 Urine Osmolality 324 mosm/kg (300-1000) 06/12/18 19:33 Ur Random Creatinine 81.2 mg/dL 06/14/18 12:00 U Random Total Protein 31.0 mg/dL (0.0-12.0) H 06/14/18 12:53 Ur Random Sodium 84 mmol/L 06/12/18 19:33 Influenza Typ A,B (EIA) Negative for flu a/b (NEGATIVE) 06/11/18 10:45 Blood Type O POSITIVE 06/11/18 10:33 Antibody Screen Negative 06/11/18 10:33 - Hospital Course Hospital Course: Upon Admission Pt is a 57yo M with PMH HTN, CKD, DM, BPH presents to ED for shortness of breath at rest since Thursday, associated with nonproductive cough. Endorses swelling the the bilateral legs since thursday. He denies chest pain, dizziness, nausea, vomiting. He reports taking his medications as prescribed. He denies using any breathing treatments or oxygen at home. Pt denies eating food with high sodium content. He endorses orthopnea and requires multiple pillows to sleep. Pt denies fever, chills, abdominal pain, diarrhea, dysuria. Hospital Course Patient is a 57 yo male admitted to hospital for shortness of breath. On chest xray it was noted that patient had venous congestion and interstitial edema. Was given antibiotics in ED. EKG showed NSR with LBBB but troponins were elevated. BNP was elevated on admission. Cardiology was consulted due to elevated troponins. Nephrology was consulted for patient's DAVID on CKD. Vascular surgery was consulted for possible AVF placement. Treatment plan was to diuresed through different diuretics and DEMETRIA/ARBs. However patient had a jump in creatinine which led to changing up multiple different blood pressure medications. DEMETRIA/ARBs were dc'ed due to DAVID. Diuretics were used however discontinued due to cardiorenal sydrome picture. Instead patient was placed on fluid restriction due hyponatremia. Patient hyponatremia trended upwards with restriction. Patient was educated on followup information and dietary restrictions. Cardiac cath was delayed due to elevated creatinine and was at higher risk for CLAUDIA. Discharge Plan 1. Patient is stable for discharge to home as per Dr. Cuba, Dr. Orlando, Dr. Grubbs. 2. Patient will need to followup with primary medical doctor, Dr. Cabrera, within 3-7 days of discharge from hospital. Patient will need to followup with recreational therapist Dr. Cristina within 2 weeks of discharge from hospital. Patient will need to followup with nephrology Dr. Hidalgo within 3-7 days of discharge from hospital. Conversation should happen with reinsurance claim analyst for AVF placement. 3. Patient will resume the following home medications: Tamsulosin as prescribed and Atorvastatin as prescribed and Insulin as prescribed. In addition patient will take the following medications as prescribed. Aspirin 81mg once daily by mouth Calcitriol 0.5mcg once daily by mouth Calcium Acetate 667mg twice daily by mouth with meals Plavix 75mg once daily by mouth Lopressor 12.5mg twice daily by mouth 4. Patient will return to hospital if symptoms worsen or recur. 5. Patient understands the plan as above and agrees. Disclaimer: Written above is a synopsis of patient's current hospital admission. For full report refer to EMR. Discharge Exam - Head Exam Head Exam: NORMAL INSPECTION, NORMOCEPHALIC - Eye Exam Eye Exam: EOMI, Normal appearance. absent: Nystagmus, Scleral icterus - ENT Exam ENT Exam: Mucous Membranes Moist - Respiratory Exam Respiratory Exam: NORMAL BREATHING PATTERN. absent: Decreased Breath Sounds, Rales, Rhonchi, Wheezes - Cardiovascular Exam Cardiovascular Exam: REGULAR RHYTHM, +S1, +S2. absent: Tachycardia - GI/Abdominal Exam GI & Abdominal Exam: Normal Bowel Sounds, Soft. absent: Diminished Bowel Sounds, Distended, Firm, Guarding, Tenderness - Neurological Exam Neurological exam: Alert, Normal Gait, Oriented x3 - Psychiatric Exam Psychiatric exam: Normal Affect, Normal Mood - Skin Skin Exam: Intact, Normal Color Discharge Plan - Discharge Medications Prescriptions: Aspirin [Aspirin Chewable] 81 mg PO DAILY #30 chew Calcitriol [Rocaltrol] 0.5 mcg PO DAILY #30 sgl Calcium Acetate [Phoslo] 667 mg PO BIDCC #60 tab Clopidogrel [Plavix] 75 mg PO DAILY #30 tab Metoprolol Tartrate [Lopressor] 12.5 mg PO BID #60 tab - Follow Up Plan Condition: GOOD Disposition: HOME/ ROUTINE Patient education suggested?: Yes Additional Instructions: 1. Patient is stable for discharge to home as per Dr. Cuba, Dr. Orlando, Dr. Grubbs. 2. Patient will need to followup with primary medical doctor, Dr. Cabrera, within 3-7 days of discharge from hospital. Patient will need to followup with recreational therapist Dr. Cristina within 2 weeks of discharge from hospital. Patient will need to followup with nephrology Dr. Hidalgo within 3-7 days of discharge from hospital. Conversation should happen with reinsurance claim analyst for AVF placement. 3. Patient will resume the following home medications: Tamsulosin as prescribed and Atorvastatin as prescribed and Insulin as prescribed. In addition patient will take the following medications as prescribed. Aspirin 81mg once daily by mouth Calcitriol 0.5mcg once daily by mouth Calcium Acetate 667mg twice daily by mouth with meals Plavix 75mg once daily by mouth Lopressor 12.5mg twice daily by mouth 4. Patient will return to hospital if symptoms worsen or recur. 5. Patient understands the plan as above and agrees. Referrals: Simeon Cristina MD [Staff Provider] - Stan Hidalgo MD [Staff Provider] -
--- NOTE | 2018-06-15 19:05 | CARD ---
APPROVED REPORT Date of service: 06/11/2018 EKG Measurement Heart [id number] <Conclusion> Normal sinus rhythm Left bundle branch block Abnormal ECG
[2018-06-16 15:00] VITALS: O2SAT 87
== END 2018-06-15 15:51 | disposition home or self-care (01) | DRG 544 ==
LOC: C.ER 10:03 → C.9I 13:34
PROVIDERS: ADMIT Internal Medicine; ATTEND Internal Medicine
DX: I13.0 Hypertensive heart and chronic kidney disease with heart failure and stage 1 through stage 4 chronic kidney disease, or unspecified chronic kidney disease (principal); N17.9 Acute kidney failure, unspecified; I50.33 Acute on chronic diastolic (congestive) heart failure; E87.1 Hypo-osmolality and hyponatremia; E11.22 Type 2 diabetes mellitus with diabetic chronic kidney disease; E11.21 Type 2 diabetes mellitus with diabetic nephropathy; N18.4 Chronic kidney disease, stage 4 (severe); F17.210 Nicotine dependence, cigarettes, uncomplicated; I31.3 Pericardial effusion (noninflammatory); I44.7 Left bundle-branch block, unspecified; N40.0 Benign prostatic hyperplasia without lower urinary tract symptoms